=== PATIENT | female | born 1950 | race Caucasian/White ===

== ENCOUNTER 2017-07-09 05:53 | Inpatient (IN) | payer BC ==
[2017-07-09] MEDS ORDERED: ETOMIDATE 20 MG INJ (06:00)
[2017-07-09] MEDS ORDERED: SUCCINYLCHOLINE CHLORIDE 100 MG/5 ML SYG IV (06:00)
[2017-07-09] MEDS ORDERED: SOD CHLORIDE 0.9% 500 ML IV (06:30)
[2017-07-09] MEDS ORDERED: SOD CHLORIDE 0.9% 1,000 ML IV (06:30)
[2017-07-09 06:41] LABS: AADO2 Arterial 568.5 mmHg (7.0-24.0); Allen Test ACCEPTAB; Arterial Base Excess 0 mmol/L (-3.0-3); Arterial Blood Gas Oxygen Sat 94.1 mmHG (95.0-98.0); Arterial COHb 0.2 % (0.0-3.0); Arterial Fraction of Oxyhgb 93.8 % (93.0-99.0); Arterial HCO3 26.7 mmol/L (22.0-26.0); Arterial MetHb 0.1 % (0.0-1.5); Arterial Total Hemglobin 11.1 g/dl (12.0-18.0); Arterial pCO2 53.4 mmhg (35-45); Blood Gas IEPAP 20/8; MODE MASK - BIPAP; Site Left Radial
[2017-07-09] MEDS ORDERED: NORepinephrine 8MG/250 ML (PMX 250 ML (06:49)
[2017-07-09] MEDS ORDERED: PROPOFOL 100 ML (07:16)
[2017-07-09] MEDS: PROPOFOL 100 ML IV ×2 (07:30→18:30)
[2017-07-09] MEDS: NORepinephrine 8MG/250 ML (PMX 250 ML IV (08:38)
[2017-07-09 08:53] LABS: AADO2 Arterial 564.3 mmHg (7.0-24.0); Allen Test ACCEPTAB; Arterial Base Excess -1.6 mmol/L (-3.0-3); Arterial Blood Gas Oxygen Sat 92.9 mmHG (95.0-98.0); Arterial COHb 0.7 % (0.0-3.0); Arterial Fraction of Oxyhgb 92.2 % (93.0-99.0); Arterial HCO3 26.6 mmol/L (22.0-26.0); Arterial MetHb 0.1 % (0.0-1.5); Arterial Total Hemglobin 11.7 g/dl (12.0-18.0); Arterial pCO2 62.4 mmhg (35-45); MODE VENT - AC; Site Right Radial
[2017-07-09] MEDS: SOD CHLORIDE 0.9% 500 ML IV ×2 (08:54→09:00)
[2017-07-09] MEDS ORDERED: VANCOMYCIN IV PER PHARMACY XX (09:00)
[2017-07-09] MEDS ORDERED: MAGNESIUM HYDROXIDE 30ML CUP PO (09:00)
[2017-07-09] MEDS ORDERED: IPRATROPIUM (HFA) 12.9 GM INHALER INH (09:00)
[2017-07-09] MEDS ORDERED: ALBUTEROL HFA 8 GM INHALER INH (09:00)
[2017-07-09] MEDS ORDERED: ONDANSETRON 4 MG INJ IV (09:00)
[2017-07-09] MEDS ORDERED: LORAZEPAM 2 MG INJ IV (09:00)
[2017-07-09 09:29] LABS: WHITE BLOOD COUNT 55.9 10^3/ul (4.8-10.8)
[2017-07-09 09:29] LABS: ABNORMAL IP MESSAGE 1; HEMATOCRIT 35.8 % (37.0-47.0); HEMOGLOBIN 10.6 g/dl (12.0-16.0); MEAN CORPUSCULAR HEMOGLOBIN 26.8 pg (29.0-33.0); MEAN CORPUSCULAR HGB CONC 29.6 g/dl (32.0-37.0); MEAN CORPUSCULAR VOLUME 90.6 fl (82.0-101.0); MEAN PLATELET VOLUME 12.5 fl (7.4-10.4); PLATELET COUNT 95 10^3/UL (140-415); RED BLOOD COUNT 3.95 10^6/ul (4.20-5.40)
[2017-07-09 09:39] LABS: ADD MAN DIFF? YES; POSITIVE DIFF @See below
[2017-07-09 10:18] LABS: LACTIC ACID 2.2 mmol/L (0.5-2.0)
[2017-07-09] MEDS: SOD CHLORIDE 0.9% 1,000 ML IV ×2 (10:19→20:21)
[2017-07-09] MEDS: HEPARIN 5,000 UNIT/0.5 ML VIAL SC ×2 (10:22→20:24)
[2017-07-09] MEDS: MEROPENEM 1 GM/50ML(PMX) 50 ML IVPB ×2 (10:23→20:21)
[2017-07-09 10:28] LABS: TROPONIN-I 0.012 ng/ml (0.00-0.12)
[2017-07-09 10:32] LABS: ANISOCYTOSIS 1+ (0-0); BAND NEUTROPHILS #M 5.5 10^3/ul (0.0-0.6); BAND NEUTROPHILS % (M) 10 % (0-4); HYPOCHROMASIA 1+ (0-0); MICROCYTOSIS 1+ (0-0); MONOCYTE #M 1.1 10^3/ul (0.3-0.9); MONOCYTES % (M) 2 % (0-11); PLATELET ESTIMATE DECREASED; SEG NEUT #M 52.3 10^3/ul (1.7-7.5); SEGMENTED NEUTROPHILS (M) % 88 % (39-77); SMUDGE%M 4 % (0-0)
[2017-07-09 11:05] LABS: PHOSPHORUS 5.9 mg/dl (2.5-4.9)
[2017-07-09 11:05] LABS: ANION GAP 13 (8-16); BLOOD UREA NITROGEN 23 mg/dl (7-20); CALCIUM 7.9 mg/dl (8.4-10.2); CARBON DIOXIDE 26 mmol/L (21-31); CHLORIDE 109 mmol/L (97-110); CREATININE 0.87 mg/dl (0.44-1.00); GLUCOSE 125 mg/dl (70-220); MAGNESIUM 1.8 mg/dl (1.7-2.5); SODIUM 144 mmol/L (135-144)
[2017-07-09] MEDS: ALBUTEROL/IPRATROPIUM (NEB) 3 ML AMP HHN ×2 (13:00→17:00)
[2017-07-09] MEDS: METHYLPREDNISOLONE 125 MG INJ IV ×2 (13:18→18:32)
[2017-07-09 15:34] LABS: TROPONIN-I < 0.012 ng/ml (0.00-0.12)
[2017-07-09] MEDS: CASPOFUNGIN 50 MG in SOD CHLORIDE 0.9% 250 ML IVPB (16:25)
[2017-07-09] MEDS: VANCOMYCIN 500MG/NS (PMX) 100 ML IVPB (17:20)
[2017-07-09] MEDS: COLLAGENASE 30 GM TUBE TOP (20:20)
[2017-07-09] MEDS: ALBUTEROL HFA 8 GM INHALER INH (21:02)
[2017-07-10] MEDS: METHYLPREDNISOLONE 125 MG INJ IV ×5 (00:40→23:30)
[2017-07-10] MEDS: ALBUTEROL HFA 8 GM INHALER INH ×6 (00:57→20:11)
[2017-07-10 04:18] LABS: ADD MAN DIFF? NO
[2017-07-10 04:22] LABS: ABNORMAL IP MESSAGE 1; BASOPHIL # 0.1 10^3/ul (0.0-0.1); BASOPHILS % 0.3 % (0.0-2.0); HEMATOCRIT 32.8 % (37.0-47.0); HEMOGLOBIN 10.3 g/dl (12.0-16.0); LYMPHOCYTES # 0.4 10^3/ul (0.8-2.9); LYMPHOCYTES % 1.2 % (15.0-51.0); MEAN CORPUSCULAR HEMOGLOBIN 27.2 pg (29.0-33.0); MEAN CORPUSCULAR HGB CONC 31.4 g/dl (32.0-37.0); MEAN CORPUSCULAR VOLUME 86.8 fl (82.0-101.0); MEAN PLATELET VOLUME 10.3 fl (7.4-10.4); MONOCYTE # 0.5 10^3/ul (0.3-0.9); MONOCYTES % 1.4 % (0.0-11.0); NEUTROPHIL # 32.2 10^3/ul (1.6-7.5); NEUTROPHILS % 94.9 % (39.0-77.0); PLATELET COUNT 317 10^3/UL (140-415); RED BLOOD COUNT 3.78 10^6/ul (4.20-5.40); RED CELL DISTRIBUTION WIDTH 19.9 % (11.5-14.5)
[2017-07-10 04:24] LABS: POSITIVE DIFF @See below
[2017-07-10 04:47] LABS: ANION GAP 13 (8-16); BLOOD UREA NITROGEN 21 mg/dl (7-20); CALCIUM 7.8 mg/dl (8.4-10.2); CARBON DIOXIDE 24 mmol/L (21-31); CHLORIDE 115 mmol/L (97-110); CREATININE 0.81 mg/dl (0.44-1.00); GLUCOSE 115 mg/dl (70-220); POTASSIUM 3.8 mmol/L (3.5-5.1); SODIUM 148 mmol/L (135-144)
[2017-07-10 04:52] LABS: VANCOMYCIN,TROUGH 12.6 ug/ml (10.0-20.0)
[2017-07-10] MEDS: SOD CHLORIDE 0.9% 1,000 ML IV ×3 (04:56→20:18)
[2017-07-10] MEDS: PROPOFOL 100 ML IV ×2 (04:59→18:30)
[2017-07-10] MEDS: VANCOMYCIN 500MG/NS (PMX) 100 ML IVPB ×2 (05:23→17:19)
[2017-07-10] MEDS: PANTOPRAZOLE (EC) 40 MG TAB PO (06:41)
[2017-07-10 08:48] LABS: AADO2 Arterial 326.7 mmHg (7.0-24.0); Allen Test ACCEPTAB; Arterial Base Excess 1.7 mmol/L (-3.0-3); Arterial Blood Gas Oxygen Sat 86.6 mmHG (95.0-98.0); Arterial COHb 1.3 % (0.0-3.0); Arterial Fraction of Oxyhgb 85.4 % (93.0-99.0); Arterial HCO3 26.5 mmol/L (22.0-26.0); Arterial MetHb 0.1 % (0.0-1.5); Arterial Total Hemglobin 9.4 g/dl (12.0-18.0); Arterial pCO2 42.9 mmhg (35-45); MODE VENT - AC; Site Right Radial
[2017-07-10] MEDS: SOD CHLORIDE 0.9% 500 ML IV (09:11)
[2017-07-10] MEDS: MULTIVITAMINS 30 ML CUP NGT (09:30)
[2017-07-10] MEDS: ASCORBIC ACID 500 MG TAB NGT (09:30)
[2017-07-10] MEDS: MEROPENEM 1 GM/50ML(PMX) 50 ML IVPB ×2 (09:30→20:52)
[2017-07-10] MEDS: ZINC SULFATE 220 MG CAP NGT (09:30)
[2017-07-10] MEDS: HEPARIN 5,000 UNIT/0.5 ML VIAL SC ×2 (09:31→20:53)
[2017-07-10] MEDS: COLLAGENASE 30 GM TUBE TOP (09:31)
[2017-07-10] MEDS: CASPOFUNGIN 50 MG in SOD CHLORIDE 0.9% 250 ML IVPB (16:39)
[2017-07-11] MEDS: PROPOFOL 100 ML IV ×2 (00:35→14:32)
[2017-07-11] MEDS: ALBUTEROL HFA 8 GM INHALER INH ×6 (01:22→21:07)
[2017-07-11] MEDS: VANCOMYCIN 500MG/NS (PMX) 100 ML IVPB ×2 (04:30→16:41)
[2017-07-11] MEDS: PANTOPRAZOLE 40 MG INJ IV (05:23)
[2017-07-11] MEDS: METHYLPREDNISOLONE 125 MG INJ IV (05:30)
[2017-07-11] MEDS: SOD CHLORIDE 0.9% 1,000 ML IV (06:07)
[2017-07-11 06:32] LABS: ADD MAN DIFF? NO
[2017-07-11 06:37] LABS: WHITE BLOOD COUNT 17.5 10^3/ul (4.8-10.8)
[2017-07-11 06:37] LABS: ABNORMAL IP MESSAGE 1; BASOPHILS % 0.2 % (0.0-2.0); HEMATOCRIT 28.2 % (37.0-47.0); HEMOGLOBIN 8.7 g/dl (12.0-16.0); LYMPHOCYTES # 0.6 10^3/ul (0.8-2.9); LYMPHOCYTES % 3.2 % (15.0-51.0); MEAN CORPUSCULAR HEMOGLOBIN 27.3 pg (29.0-33.0); MEAN CORPUSCULAR HGB CONC 30.9 g/dl (32.0-37.0); MEAN CORPUSCULAR VOLUME 88.4 fl (82.0-101.0); MEAN PLATELET VOLUME 10.5 fl (7.4-10.4); MONOCYTE # 0.5 10^3/ul (0.3-0.9); MONOCYTES % 2.7 % (0.0-11.0); NEUTROPHIL # 16.1 10^3/ul (1.6-7.5); NEUTROPHILS % 92.2 % (39.0-77.0); PLATELET COUNT 259 10^3/UL (140-415); RED BLOOD COUNT 3.19 10^6/ul (4.20-5.40); RED CELL DISTRIBUTION WIDTH 19.6 % (11.5-14.5)
[2017-07-11 06:43] LABS: POSITIVE DIFF @See below
[2017-07-11 07:11] LABS: ANION GAP 13 (8-16); BLOOD UREA NITROGEN 25 mg/dl (7-20); CALCIUM 7.8 mg/dl (8.4-10.2); CARBON DIOXIDE 26 mmol/L (21-31); CHLORIDE 117 mmol/L (97-110); CREATININE 0.65 mg/dl (0.44-1.00); GLUCOSE 126 mg/dl (70-220); POTASSIUM 3.6 mmol/L (3.5-5.1); SODIUM 152 mmol/L (135-144)
[2017-07-11 07:32] LABS: PHOSPHORUS 3.4 mg/dl (2.5-4.9)
[2017-07-11 07:32] LABS: MAGNESIUM 1.8 mg/dl (1.7-2.5)
[2017-07-11 08:32] LABS: Allen Test ACCEPTAB; Arterial Base Excess 1.2 mmol/L (-3.0-3); Arterial Blood Gas Oxygen Sat 93.3 mmHG (95.0-98.0); Arterial COHb 0.2 % (0.0-3.0); Arterial HCO3 26.3 mmol/L (22.0-26.0); Arterial MetHb 0.1 % (0.0-1.5); Arterial Total Hemglobin 9.3 g/dl (12.0-18.0); Arterial pCO2 44.1 mmhg (35-45); MODE VENT - AC; Site Right Radial
[2017-07-11] MEDS: MEROPENEM 1 GM/50ML(PMX) 50 ML IVPB ×2 (08:48→21:02)
[2017-07-11] MEDS: ASCORBIC ACID 500 MG TAB NGT (08:48)
[2017-07-11] MEDS: ZINC SULFATE 220 MG CAP NGT (08:48)
[2017-07-11] MEDS: MULTIVITAMINS 30 ML CUP NGT (08:48)
[2017-07-11] MEDS: COLLAGENASE 30 GM TUBE TOP (08:48)
[2017-07-11] MEDS: HEPARIN 5,000 UNIT/0.5 ML VIAL SC ×2 (08:53→21:06)
[2017-07-11] MEDS: METHYLPREDNISOLONE 40 MG INJ IV ×2 (14:32→21:31)
[2017-07-11] MEDS: SOD CHLORIDE 0.45% 1,000 ML IV (14:35)
[2017-07-11] MEDS: CASPOFUNGIN 50 MG in SOD CHLORIDE 0.9% 250 ML IVPB (15:30)
[2017-07-11] MEDS: HYDROmorphONE 0.5 MG/0.5 ML SYG IV (23:07)
[2017-07-12] MEDS: PROPOFOL 100 ML IV ×3 (00:19→20:57)
[2017-07-12] MEDS: ALBUTEROL HFA 8 GM INHALER INH ×6 (01:18→20:08)
[2017-07-12] MEDS: SOD CHLORIDE 0.45% 1,000 ML IV ×2 (04:48→06:54)
[2017-07-12] MEDS: VANCOMYCIN 500MG/NS (PMX) 100 ML IVPB ×2 (05:22→16:51)
[2017-07-12] MEDS: PANTOPRAZOLE 40 MG INJ IV (05:37)
[2017-07-12] MEDS: METHYLPREDNISOLONE 40 MG INJ IV ×3 (05:37→21:32)
[2017-07-12 05:57] LABS: ADD MAN DIFF? NO
[2017-07-12 06:15] LABS: WHITE BLOOD COUNT 14.3 10^3/ul (4.8-10.8)
[2017-07-12 06:15] LABS: ABNORMAL IP MESSAGE 1; BASOPHILS % 0.1 % (0.0-2.0); HEMATOCRIT 29.9 % (37.0-47.0); HEMOGLOBIN 9.4 g/dl (12.0-16.0); LYMPHOCYTES # 0.5 10^3/ul (0.8-2.9); LYMPHOCYTES % 3.8 % (15.0-51.0); MEAN CORPUSCULAR HEMOGLOBIN 27.6 pg (29.0-33.0); MEAN CORPUSCULAR HGB CONC 31.4 g/dl (32.0-37.0); MEAN CORPUSCULAR VOLUME 87.7 fl (82.0-101.0); MEAN PLATELET VOLUME 10.3 fl (7.4-10.4); MONOCYTE # 0.6 10^3/ul (0.3-0.9); MONOCYTES % 4.1 % (0.0-11.0); NEUTROPHILS % 90.4 % (39.0-77.0); PLATELET COUNT 230 10^3/UL (140-415); RED BLOOD COUNT 3.41 10^6/ul (4.20-5.40); RED CELL DISTRIBUTION WIDTH 19.9 % (11.5-14.5)
[2017-07-12 06:38] LABS: MAGNESIUM 1.9 mg/dl (1.7-2.5)
[2017-07-12 06:38] LABS: PHOSPHORUS 3.3 mg/dl (2.5-4.9)
[2017-07-12 06:39] LABS: ALANINE AMINOTRANSFERASE 35 IU/L (13-69); ALKALINE PHOSPHATASE 105 IU/L (42-121); ANION GAP 15 (8-16); ASPARTATE AMINO TRANSFERASE 11 IU/L (15-46); BLOOD UREA NITROGEN 29 mg/dl (7-20); CALCIUM 7.8 mg/dl (8.4-10.2); CARBON DIOXIDE 24 mmol/L (21-31); CHLORIDE 118 mmol/L (97-110); CREATININE 0.68 mg/dl (0.44-1.00); GLUCOSE 139 mg/dl (70-220); SODIUM 153 mmol/L (135-144); TOTAL PROTEIN 4.5 g/dl (6.1-8.1)
[2017-07-12 06:58] LABS: POSITIVE DIFF @See below
[2017-07-12] MEDS: MEROPENEM 1 GM/50ML(PMX) 50 ML IVPB ×2 (08:48→20:57)
[2017-07-12] MEDS: ZINC SULFATE 220 MG CAP NGT (08:48)
[2017-07-12] MEDS: ASCORBIC ACID 500 MG TAB NGT (08:48)
[2017-07-12] MEDS: MULTIVITAMINS 30 ML CUP NGT (08:48)
[2017-07-12] MEDS: HEPARIN 5,000 UNIT/0.5 ML VIAL SC ×2 (09:02→20:58)
[2017-07-12] MEDS: COLLAGENASE 30 GM TUBE TOP (09:09)
[2017-07-12] MEDS: HYDROmorphONE 0.5 MG/0.5 ML SYG IV ×2 (11:31→19:35)
[2017-07-12] MEDS: CASPOFUNGIN 50 MG in SOD CHLORIDE 0.9% 250 ML IVPB (16:04)
[2017-07-13] MEDS: ALBUTEROL HFA 8 GM INHALER INH ×6 (00:18→23:42)
[2017-07-13] MEDS: HYDROmorphONE 0.5 MG/0.5 ML SYG IV ×4 (00:35→15:20)
[2017-07-13] MEDS: SOD CHLORIDE 0.45% 1,000 ML IV (01:06)
[2017-07-13] MEDS: VANCOMYCIN 500MG/NS (PMX) 100 ML IVPB ×2 (04:35→18:30)
[2017-07-13 05:17] LABS: ADD MAN DIFF? NO
[2017-07-13 05:26] LABS: WHITE BLOOD COUNT 14.9 10^3/ul (4.8-10.8)
[2017-07-13 05:26] LABS: ABNORMAL IP MESSAGE 1; BASOPHILS % 0.2 % (0.0-2.0); HEMATOCRIT 30.3 % (37.0-47.0); HEMOGLOBIN 9.2 g/dl (12.0-16.0); LYMPHOCYTES # 0.6 10^3/ul (0.8-2.9); LYMPHOCYTES % 3.7 % (15.0-51.0); MEAN CORPUSCULAR HGB CONC 30.4 g/dl (32.0-37.0); MEAN CORPUSCULAR VOLUME 88.9 fl (82.0-101.0); MEAN PLATELET VOLUME 10.3 fl (7.4-10.4); MONOCYTE # 0.6 10^3/ul (0.3-0.9); MONOCYTES % 4.3 % (0.0-11.0); NEUTROPHIL # 13.3 10^3/ul (1.6-7.5); NEUTROPHILS % 89.6 % (39.0-77.0); PLATELET COUNT 206 10^3/UL (140-415); RED BLOOD COUNT 3.41 10^6/ul (4.20-5.40); RED CELL DISTRIBUTION WIDTH 19.2 % (11.5-14.5)
[2017-07-13 05:36] LABS: POSITIVE DIFF @See below
[2017-07-13] MEDS: METHYLPREDNISOLONE 40 MG INJ IV ×2 (05:45→15:11)
[2017-07-13] MEDS: PANTOPRAZOLE 40 MG INJ IV ×2 (05:45→21:01)
[2017-07-13 06:16] LABS: ANION GAP 14 (8-16); BLOOD UREA NITROGEN 32 mg/dl (7-20); CALCIUM 7.6 mg/dl (8.4-10.2); CARBON DIOXIDE 24 mmol/L (21-31); CHLORIDE 119 mmol/L (97-110); CREATININE 0.64 mg/dl (0.44-1.00); GLUCOSE 135 mg/dl (70-220); POTASSIUM 4.4 mmol/L (3.5-5.1); SODIUM 153 mmol/L (135-144)
[2017-07-13 06:52] LABS: MAGNESIUM 1.9 mg/dl (1.7-2.5)
[2017-07-13 06:52] LABS: PHOSPHORUS 3.4 mg/dl (2.5-4.9)
[2017-07-13] MEDS: ZINC SULFATE 220 MG CAP NGT (08:14)
[2017-07-13] MEDS: MULTIVITAMINS 30 ML CUP NGT (08:14)
[2017-07-13] MEDS: DOCUSATE SODIUM 100 MG CAP PO (08:14)
[2017-07-13] MEDS: ASCORBIC ACID 500 MG TAB NGT (08:15)
[2017-07-13] MEDS: HEPARIN 5,000 UNIT/0.5 ML VIAL SC (08:17)
[2017-07-13] MEDS: COLLAGENASE 30 GM TUBE TOP (08:17)
[2017-07-13] MEDS: MEROPENEM 1 GM/50ML(PMX) 50 ML IVPB ×2 (08:18→21:02)
[2017-07-13 10:45] LABS: AADO2 Arterial 230.7 mmHg (7.0-24.0); Allen Test ACCEPTAB; Arterial Base Excess -2.1 mmol/L (-3.0-3); Arterial COHb 0 % (0.0-3.0); Arterial Fraction of Oxyhgb 93.9 % (93.0-99.0); Arterial HCO3 22.2 mmol/L (22.0-26.0); Arterial MetHb 0.1 % (0.0-1.5); Arterial Total Hemglobin 10.8 g/dl (12.0-18.0); MODE VENT - AC; Site Right Radial
[2017-07-13] MEDS: DEXTROSE 5% 1,000 ML IV (16:24)
[2017-07-13] MEDS: CASPOFUNGIN 50 MG in SOD CHLORIDE 0.9% 250 ML IVPB (16:26)
[2017-07-13 18:45] LABS: ADD MAN DIFF? NO
[2017-07-13 18:47] LABS: BASOPHILS % 0.1 % (0.0-2.0); HEMATOCRIT 28.4 % (37.0-47.0); HEMOGLOBIN 8.6 g/dl (12.0-16.0); LYMPHOCYTES # 0.8 10^3/ul (0.8-2.9); LYMPHOCYTES % 3.7 % (15.0-51.0); MEAN CORPUSCULAR HEMOGLOBIN 27.2 pg (29.0-33.0); MEAN CORPUSCULAR HGB CONC 30.3 g/dl (32.0-37.0); MEAN CORPUSCULAR VOLUME 89.9 fl (82.0-101.0); MEAN PLATELET VOLUME 10.4 fl (7.4-10.4); MONOCYTE # 0.7 10^3/ul (0.3-0.9); MONOCYTES % 3.5 % (0.0-11.0); PLATELET COUNT 222 10^3/UL (140-415); RED BLOOD COUNT 3.16 10^6/ul (4.20-5.40); RED CELL DISTRIBUTION WIDTH 18.7 % (11.5-14.5)
[2017-07-13 18:47] LABS: WHITE BLOOD COUNT 21.1 10^3/ul (4.8-10.8)
[2017-07-13 21:15] LABS: AADO2 Arterial 288.9 mmHg (7.0-24.0); Allen Test ACCEPTAB; Arterial Base Excess -2.3 mmol/L (-3.0-3); Arterial Blood Gas Oxygen Sat 94.1 mmHG (95.0-98.0); Arterial COHb 0.3 % (0.0-3.0); Arterial Fraction of Oxyhgb 93.7 % (93.0-99.0); Arterial HCO3 23.1 mmol/L (22.0-26.0); Arterial MetHb 0.1 % (0.0-1.5); Arterial Total Hemglobin 9.3 g/dl (12.0-18.0); Arterial pCO2 42.2 mmhg (35-45); MODE VENT - AC; Site Right Radial
[2017-07-13] MEDS: PEG/ELECTROLYTES 4L BTL PO ×2 (22:17→23:46)
[2017-07-13] MEDS: PROPOFOL 100 ML IV (22:36)
[2017-07-14 01:55] LABS: IMMEDIATE SPIN CROSSMATCH 1 2
[2017-07-14] MEDS: VANCOMYCIN 500MG/NS (PMX) 100 ML IVPB ×2 (04:56→18:05)
[2017-07-14] MEDS: ALBUTEROL HFA 8 GM INHALER INH ×5 (05:00→20:03)
[2017-07-14 05:31] LABS: ADD MAN DIFF? NO
[2017-07-14 05:50] LABS: ABNORMAL IP MESSAGE 1; BASOPHIL # 0.2 10^3/ul (0.0-0.1); BASOPHILS % 0.6 % (0.0-2.0); HEMATOCRIT 43.8 % (37.0-47.0); HEMOGLOBIN 14.1 g/dl (12.0-16.0); LYMPHOCYTES # 1.4 10^3/ul (0.8-2.9); LYMPHOCYTES % 4.6 % (15.0-51.0); MEAN CORPUSCULAR HEMOGLOBIN 28.7 pg (29.0-33.0); MEAN CORPUSCULAR HGB CONC 32.2 g/dl (32.0-37.0); MEAN PLATELET VOLUME 12.1 fl (7.4-10.4); MONOCYTE # 1.1 10^3/ul (0.3-0.9); MONOCYTES % 3.7 % (0.0-11.0); NEUTROPHIL # 26.3 10^3/ul (1.6-7.5); RED BLOOD COUNT 4.92 10^6/ul (4.20-5.40); RED CELL DISTRIBUTION WIDTH 16.2 % (11.5-14.5)
[2017-07-14 05:50] LABS: WHITE BLOOD COUNT 30.2 10^3/ul (4.8-10.8)
[2017-07-14 06:03] LABS: PHOSPHORUS 4.3 mg/dl (2.5-4.9)
[2017-07-14 06:03] LABS: MAGNESIUM 2.1 mg/dl (1.7-2.5)
[2017-07-14] MEDS: PANTOPRAZOLE 40 MG INJ IV ×2 (06:04→18:06)
[2017-07-14] MEDS: PROPOFOL 100 ML IV ×2 (06:04→18:30)
[2017-07-14 06:08] LABS: ANION GAP 18 (8-16); BLOOD UREA NITROGEN 37 mg/dl (7-20); CALCIUM 7.4 mg/dl (8.4-10.2); CARBON DIOXIDE 23 mmol/L (21-31); CHLORIDE 118 mmol/L (97-110); CREATININE 0.63 mg/dl (0.44-1.00); GLUCOSE 141 mg/dl (70-220); POTASSIUM 4.5 mmol/L (3.5-5.1); SODIUM 154 mmol/L (135-144)
[2017-07-14 06:15] LABS: PLATELET COUNT 138 10^3/UL (140-415); POSITIVE DIFF @See below
[2017-07-14] MEDS: SOD CHLORIDE 0.9% 1,000 ML IV ×2 (06:51→12:50)
[2017-07-14] MEDS: MULTIVITAMINS 30 ML CUP NGT (09:00)
[2017-07-14] MEDS: MEROPENEM 1 GM/50ML(PMX) 50 ML IVPB ×2 (09:00→20:38)
[2017-07-14] MEDS: ASCORBIC ACID 500 MG TAB NGT (09:00)
[2017-07-14] MEDS: ZINC SULFATE 220 MG CAP NGT (09:00)
[2017-07-14] MEDS: COLLAGENASE 30 GM TUBE TOP ×2 (09:00→11:55)
[2017-07-14] MEDS: NA PHOSPHATE/BIPHOS 133 ML ENEMA PR (11:30)
[2017-07-14] MEDS ORDERED: MIDAZOLAM (DRIP) 50 mg/50 mL 50 ML IV (12:45)
[2017-07-14] MEDS: MIDAZOLAM (DRIP) 50 mg/50 mL 50 ML IV ×2 (13:09→22:27)
[2017-07-14] MEDS: DEXTROSE 5% 1,000 ML IV (15:30)
[2017-07-14] MEDS: CASPOFUNGIN 50 MG in SOD CHLORIDE 0.9% 250 ML IVPB (16:40)
[2017-07-14 17:40] LABS: VANCOMYCIN,TROUGH 17.6 ug/ml (10.0-20.0)
[2017-07-14] MEDS: PHENYLephrine 20MG IN 250 ML 250 ML IV (20:37)
[2017-07-15] MEDS: ALBUTEROL HFA 8 GM INHALER INH ×3 (00:17→07:56)
[2017-07-15] MEDS: PHENYLephrine 20MG IN 250 ML 250 ML IV ×2 (03:03→07:26)
[2017-07-15] MEDS: DEXTROSE 5% 1,000 ML IV (04:47)
[2017-07-15 05:30] LABS: ABNORMAL IP MESSAGE 1; HEMATOCRIT 44.9 % (37.0-47.0); HEMOGLOBIN 14.4 g/dl (12.0-16.0); MEAN CORPUSCULAR HEMOGLOBIN 28.5 pg (29.0-33.0); MEAN CORPUSCULAR HGB CONC 32.1 g/dl (32.0-37.0); MEAN CORPUSCULAR VOLUME 88.7 fl (82.0-101.0); MEAN PLATELET VOLUME 12.8 fl (7.4-10.4); PLATELET COUNT 135 10^3/UL (140-415); RED BLOOD COUNT 5.06 10^6/ul (4.20-5.40); RED CELL DISTRIBUTION WIDTH 17.3 % (11.5-14.5)
[2017-07-15 05:30] LABS: WHITE BLOOD COUNT 48.6 10^3/ul (4.8-10.8)
[2017-07-15 05:47] LABS: ADD MAN DIFF? YES; POSITIVE DIFF @See below
[2017-07-15 06:12] LABS: ALANINE AMINOTRANSFERASE 44 IU/L (13-69); ALBUMIN/GLOBULIN RATIO 0.83; ALKALINE PHOSPHATASE 123 IU/L (42-121); ANION GAP 22 (8-16); ASPARTATE AMINO TRANSFERASE 31 IU/L (15-46); BILIRUBIN,INDIRECT 0.4 mg/dl (0-1.1); BILIRUBIN,TOTAL 1.5 mg/dl (0.2-1.3); BLOOD UREA NITROGEN 40 mg/dl (7-20); CALCIUM 7.7 mg/dl (8.4-10.2); CARBON DIOXIDE 21 mmol/L (21-31); CHLORIDE 116 mmol/L (97-110); CREATININE 0.86 mg/dl (0.44-1.00); GLUCOSE 114 mg/dl (70-220); SODIUM 155 mmol/L (135-144); TOTAL PROTEIN 4.4 g/dl (6.1-8.1)
[2017-07-15 06:23] LABS: MAGNESIUM 2.3 mg/dl (1.7-2.5)
[2017-07-15 06:23] LABS: PHOSPHORUS 5.6 mg/dl (2.5-4.9)
[2017-07-15] MEDS: PANTOPRAZOLE 40 MG INJ IV ×2 (06:26→17:40)
[2017-07-15] MEDS: PROPOFOL 100 ML IV ×2 (06:30→18:30)
[2017-07-15] MEDS ORDERED: PHENYLephrine 40 MG in DEXTROSE 5% 496 ML IV (07:00)
[2017-07-15 07:42] LABS: ANISOCYTOSIS 2+ (0-0); BAND NEUTROPHILS #M 10.6 10^3/ul (0.0-0.6); BAND NEUTROPHILS % (M) 22 % (0-4); BURR CELLS 2+ (0-0); HYPOCHROMASIA 2+ (0-0); LYMPHOCYTES #M 2.9 10^3/ul (0.8-2.9); LYMPHOCYTES % (M) 6 % (15-51); MICROCYTOSIS 1+ (0-0); MONOCYTE #M 0.9 10^3/ul (0.3-0.9); MONOCYTES % (M) 2 % (0-11); PLATELET ESTIMATE DECREASED; POIKILOCYTOSIS 1+ (0-0); POLYCHROMASIA 3+ (0-0); SEG NEUT #M 39.2 10^3/ul (1.7-7.5); SEGMENTED NEUTROPHILS (M) % 70 % (39-77)
[2017-07-15] MEDS: SOD CHLORIDE 0.9% 500 ML IV (08:30)
[2017-07-15] MEDS: MEROPENEM 1 GM/50ML(PMX) 50 ML IVPB ×2 (08:35→20:41)
[2017-07-15] MEDS: COLLAGENASE 30 GM TUBE TOP ×2 (08:36→10:30)
[2017-07-15] MEDS: ZINC SULFATE 220 MG CAP NGT (09:11)
[2017-07-15] MEDS: ASCORBIC ACID 500 MG TAB NGT (09:11)
[2017-07-15] MEDS: MULTIVITAMINS 30 ML CUP NGT (09:11)
[2017-07-15] MEDS: SOD CHLORIDE 0.9% 1,000 ML IV (09:11)
[2017-07-15] MEDS: VANCOMYCIN HCL 250 MG/5ML POSYG PO ×3 (09:39→17:41)
[2017-07-15] MEDS: MIDAZOLAM (DRIP) 50 mg/50 mL 50 ML IV (09:40)
[2017-07-15] MEDS: LACTATED RINGER'S 1,000 ML IV ×2 (13:04→16:09)
[2017-07-15 15:19] LABS: ANION GAP 16 (8-16); BLOOD UREA NITROGEN 43 mg/dl (7-20); CALCIUM 7.1 mg/dl (8.4-10.2); CARBON DIOXIDE 21 mmol/L (21-31); CHLORIDE 117 mmol/L (97-110); GLUCOSE 119 mg/dl (70-220); SODIUM 150 mmol/L (135-144)
[2017-07-15] MEDS: CASPOFUNGIN 50 MG in SOD CHLORIDE 0.9% 250 ML IVPB (15:59)
[2017-07-15] MEDS: ACETAMINOPHEN 650MG/20.3ML CUP PO (15:59)
[2017-07-15] MEDS: ALBUMIN HUMAN 5% 250 ML IV (17:44)
[2017-07-15] MEDS: VANCOMYCIN 1.25 GM in SOD CHLORIDE 0.45% 250 ML IVPB (18:38)
[2017-07-16] MEDS: VANCOMYCIN HCL 250 MG/5ML POSYG PO ×5 (00:49→23:39)
[2017-07-16 05:14] LABS: Allen Test ACCEPTAB; Arterial Base Excess -7.8 mmol/L (-3.0-3); Arterial Blood Gas Oxygen Sat 98.2 mmHG (95.0-98.0); Arterial COHb 0 % (0.0-3.0); Arterial Fraction of Oxyhgb 97.9 % (93.0-99.0); Arterial HCO3 19.9 mmol/L (22.0-26.0); Arterial MetHb 0.3 % (0.0-1.5); Arterial Total Hemglobin 11.4 g/dl (12.0-18.0); MODE VENT - AC; Site Right Radial
[2017-07-16 05:17] LABS: WHITE BLOOD COUNT 43.5 10^3/ul (4.8-10.8)
[2017-07-16 05:17] LABS: ABNORMAL IP MESSAGE 1; HEMATOCRIT 32.9 % (37.0-47.0); HEMOGLOBIN 10.6 g/dl (12.0-16.0); MEAN CORPUSCULAR HGB CONC 32.2 g/dl (32.0-37.0); MEAN CORPUSCULAR VOLUME 89.9 fl (82.0-101.0); MEAN PLATELET VOLUME 12.4 fl (7.4-10.4); PLATELET COUNT 118 10^3/UL (140-415); RED BLOOD COUNT 3.66 10^6/ul (4.20-5.40); RED CELL DISTRIBUTION WIDTH 17.2 % (11.5-14.5)
[2017-07-16 05:50] LABS: POSITIVE DIFF @See below
[2017-07-16 05:51] LABS: ADD MAN DIFF? YES
[2017-07-16 06:10] LABS: ALANINE AMINOTRANSFERASE 74 IU/L (13-69); ALBUMIN 1.8 g/dl (3.3-4.9); ALBUMIN/GLOBULIN RATIO 0.85; ALKALINE PHOSPHATASE 107 IU/L (42-121); ANION GAP 19 (8-16); ASPARTATE AMINO TRANSFERASE 46 IU/L (15-46); BLOOD UREA NITROGEN 46 mg/dl (7-20); CALCIUM 7.7 mg/dl (8.4-10.2); CARBON DIOXIDE 20 mmol/L (21-31); CHLORIDE 116 mmol/L (97-110); CREATININE 1.17 mg/dl (0.44-1.00); GLUCOSE 103 mg/dl (70-220); POTASSIUM 3.9 mmol/L (3.5-5.1); SODIUM 151 mmol/L (135-144); TOTAL PROTEIN 3.9 g/dl (6.1-8.1)
[2017-07-16] MEDS: PANTOPRAZOLE 40 MG INJ IV ×2 (06:18→18:03)
[2017-07-16 06:26] LABS: PHOSPHORUS 6.7 mg/dl (2.5-4.9)
[2017-07-16 06:26] LABS: MAGNESIUM 2.2 mg/dl (1.7-2.5)
[2017-07-16] MEDS: PROPOFOL 100 ML IV ×2 (06:30→17:17)
[2017-07-16] MEDS: ZINC SULFATE 220 MG CAP NGT (08:06)
[2017-07-16] MEDS: ASCORBIC ACID 500 MG TAB NGT (08:06)
[2017-07-16] MEDS: MULTIVITAMINS 30 ML CUP NGT (08:06)
[2017-07-16] MEDS: MEROPENEM 1 GM/50ML(PMX) 50 ML IVPB ×2 (08:12→20:51)
[2017-07-16 08:22] LABS: ANISOCYTOSIS 1+ (0-0); BAND NEUTROPHILS #M 4.3 10^3/ul (0.0-0.6); BAND NEUTROPHILS % (M) 10 % (0-4); BURR CELLS 1+ (0-0); GIANT THROMBO% (M) 1 % (0-0); HYPOCHROMASIA 1+ (0-0); LYMPHOCYTES #M 1.3 10^3/ul (0.8-2.9); LYMPHOCYTES % (M) 3 % (15-51); MICROCYTOSIS 1+ (0-0); PLATELET ESTIMATE DECREASED; POIKILOCYTOSIS 1+ (0-0); POLYCHROMASIA 1+ (0-0); REACTIVE LYMPHOCYTES #M 0.4 10^3/ul (0.0-0.0); REACTIVE LYMPHOCYTES% (M) 1 % (0-0); SEG NEUT #M 39.3 10^3/ul (1.7-7.5); SEGMENTED NEUTROPHILS (M) % 86 % (39-77); TARGET CELLS 1+ (0-0)
[2017-07-16] MEDS: ALBUMIN HUMAN 25% 50 ML IV (10:05)
[2017-07-16] MEDS: SODIUM BICARBONATE (IV ADD) 150 MEQ in DEXTROSE 5% 850 ML IV ×2 (11:34→21:24)
[2017-07-16] MEDS: CASPOFUNGIN 50 MG in SOD CHLORIDE 0.9% 250 ML IVPB (15:51)
[2017-07-16 16:28] LABS: SODIUM,URINE RANDOM 20 mmol/L (30-90)
[2017-07-16] MEDS: COLLAGENASE 30 GM TUBE TOP (17:47)
[2017-07-17 05:44] LABS: ADD MAN DIFF? NO
[2017-07-17 05:48] LABS: ABNORMAL IP MESSAGE 1; BASOPHILS % 0.2 % (0.0-2.0); HEMATOCRIT 29.6 % (37.0-47.0); HEMOGLOBIN 9.6 g/dl (12.0-16.0); LYMPHOCYTES # 1.1 10^3/ul (0.8-2.9); LYMPHOCYTES % 4.2 % (15.0-51.0); MEAN CORPUSCULAR HEMOGLOBIN 28.6 pg (29.0-33.0); MEAN CORPUSCULAR HGB CONC 32.4 g/dl (32.0-37.0); MEAN CORPUSCULAR VOLUME 88.1 fl (82.0-101.0); MEAN PLATELET VOLUME 12.3 fl (7.4-10.4); MONOCYTE # 0.3 10^3/ul (0.3-0.9); MONOCYTES % 1.2 % (0.0-11.0); NEUTROPHIL # 24.6 10^3/ul (1.6-7.5); NEUTROPHILS % 93.6 % (39.0-77.0); PLATELET COUNT 118 10^3/UL (140-415); RED BLOOD COUNT 3.36 10^6/ul (4.20-5.40); RED CELL DISTRIBUTION WIDTH 17.1 % (11.5-14.5)
[2017-07-17 05:48] LABS: WHITE BLOOD COUNT 26.3 10^3/ul (4.8-10.8)
[2017-07-17 06:02] LABS: POSITIVE DIFF @See below
[2017-07-17 06:11] LABS: LACTIC ACID 2.4 mmol/L (0.5-2.0)
[2017-07-17] MEDS: PROPOFOL 100 ML IV ×2 (06:30→19:34)
[2017-07-17 06:36] LABS: ALANINE AMINOTRANSFERASE 57 IU/L (13-69); ALBUMIN 1.7 g/dl (3.3-4.9); ALKALINE PHOSPHATASE 95 IU/L (42-121); ANION GAP 18 (8-16); ASPARTATE AMINO TRANSFERASE 68 IU/L (15-46); BLOOD UREA NITROGEN 51 mg/dl (7-20); CALCIUM 7.2 mg/dl (8.4-10.2); CARBON DIOXIDE 22 mmol/L (21-31); CHLORIDE 112 mmol/L (97-110); CREATININE 1.03 mg/dl (0.44-1.00); GLUCOSE 120 mg/dl (70-220); LIPASE 49 U/L (23-300); POTASSIUM 3.9 mmol/L (3.5-5.1); SODIUM 148 mmol/L (135-144); TOTAL PROTEIN 3.8 g/dl (6.1-8.1)
[2017-07-17 06:38] LABS: PHOSPHORUS 5.9 mg/dl (2.5-4.9)
[2017-07-17 06:38] LABS: CREATINE KINASE 33 IU/L (23-200); MAGNESIUM 2.2 mg/dl (1.7-2.5)
[2017-07-17] MEDS: PANTOPRAZOLE 40 MG INJ IV ×2 (06:54→17:52)
[2017-07-17] MEDS: VANCOMYCIN HCL 250 MG/5ML POSYG PO ×3 (06:54→17:52)
[2017-07-17 07:03] LABS: THYROID STIMULATING HORMONE 0.737 MIU/L (0.465-4.680)
[2017-07-17] MEDS: SODIUM BICARBONATE (IV ADD) 150 MEQ in DEXTROSE 5% 850 ML IV ×2 (08:27→18:47)
[2017-07-17 09:06] LABS: BAND NEUTROPHILS #M 3.1 10^3/ul (0.0-0.6); BAND NEUTROPHILS % (M) 12 % (0-4); HYPOCHROMASIA 1+ (0-0); LYMPHOCYTES #M 1.5 10^3/ul (0.8-2.9); LYMPHOCYTES % (M) 6 % (15-51); PLATELET ESTIMATE DECREASED; POIKILOCYTOSIS 1+ (0-0); SEG NEUT #M 22.4 10^3/ul (1.7-7.5); SEGMENTED NEUTROPHILS (M) % 82 % (39-77); SMUDGE%M 1 % (0-0); TARGET CELLS 1+ (0-0)
[2017-07-17] MEDS: MULTIVITAMINS 30 ML CUP NGT (09:29)
[2017-07-17] MEDS: ZINC SULFATE 220 MG CAP NGT (09:29)
[2017-07-17] MEDS: ASCORBIC ACID 500 MG TAB NGT (09:29)
[2017-07-17] MEDS: MEROPENEM 1 GM/50ML(PMX) 50 ML IVPB ×2 (09:30→20:41)
[2017-07-17] MEDS: MIDAZOLAM (DRIP) 50 mg/50 mL 50 ML IV (09:39)
[2017-07-17] MEDS: COLLAGENASE 30 GM TUBE TOP (13:33)
[2017-07-17] MEDS: CASPOFUNGIN 50 MG in SOD CHLORIDE 0.9% 250 ML IVPB (15:45)
[2017-07-18] MEDS: VANCOMYCIN HCL 250 MG/5ML POSYG PO ×4 (01:32→18:10)
[2017-07-18] MEDS: MIDAZOLAM (DRIP) 50 mg/50 mL 50 ML IV (01:35)
[2017-07-18] MEDS: SODIUM BICARBONATE (IV ADD) 150 MEQ in DEXTROSE 5% 850 ML IV ×2 (04:06→16:26)
[2017-07-18 05:20] LABS: ABNORMAL IP MESSAGE 1; HEMATOCRIT 29.4 % (37.0-47.0); HEMOGLOBIN 9.6 g/dl (12.0-16.0); MEAN CORPUSCULAR HEMOGLOBIN 28.9 pg (29.0-33.0); MEAN CORPUSCULAR HGB CONC 32.7 g/dl (32.0-37.0); MEAN CORPUSCULAR VOLUME 88.6 fl (82.0-101.0); MEAN PLATELET VOLUME 13.3 fl (7.4-10.4); PLATELET COUNT 105 10^3/UL (140-415); RED BLOOD COUNT 3.32 10^6/ul (4.20-5.40); RED CELL DISTRIBUTION WIDTH 17.1 % (11.5-14.5)
[2017-07-18 05:37] LABS: ADD MAN DIFF? YES; POSITIVE DIFF @See below
[2017-07-18] MEDS: PANTOPRAZOLE 40 MG INJ IV ×2 (05:56→18:08)
[2017-07-18] MEDS: PROPOFOL 100 ML IV ×3 (05:58→22:38)
[2017-07-18 06:07] LABS: MAGNESIUM 2.1 mg/dl (1.7-2.5)
[2017-07-18 06:07] LABS: PHOSPHORUS 5.4 mg/dl (2.5-4.9)
[2017-07-18 06:44] LABS: ANION GAP 16 (8-16); BLOOD UREA NITROGEN 50 mg/dl (7-20); CARBON DIOXIDE 26 mmol/L (21-31); CHLORIDE 107 mmol/L (97-110); CREATININE 1.28 mg/dl (0.44-1.00); GLUCOSE 125 mg/dl (70-220); SODIUM 146 mmol/L (135-144)
[2017-07-18 06:59] LABS: POTASSIUM 2.5 mmol/L (3.5-5.1)
[2017-07-18 07:06] LABS: AADO2 Arterial 160.9 mmHg (7.0-24.0); Allen Test ACCEPTAB; Arterial Blood Gas Oxygen Sat 92.6 mmHG (95.0-98.0); Arterial COHb 0.1 % (0.0-3.0); Arterial Fraction of Oxyhgb 92.2 % (93.0-99.0); Arterial HCO3 22.5 mmol/L (22.0-26.0); Arterial MetHb 0.3 % (0.0-1.5); Arterial pCO2 42.4 mmhg (35-45); MODE VENT - VC+; Site Right Radial
[2017-07-18] MEDS ORDERED: POTASSIUM CHLORIDE 50 ML IVPB (07:30)
[2017-07-18] MEDS: POTASSIUM CHLORIDE 50 ML IVPB ×5 (07:35→22:41)
[2017-07-18 09:21] LABS: ANISOCYTOSIS 1+ (0-0); BAND NEUTROPHILS #M 7.7 10^3/ul (0.0-0.6); BAND NEUTROPHILS % (M) 35 % (0-4); HYPOCHROMASIA 2+ (0-0); LYMPHOCYTES #M 0.4 10^3/ul (0.8-2.9); LYMPHOCYTES % (M) 2 % (15-51); MONOCYTE #M 0.6 10^3/ul (0.3-0.9); MONOCYTES % (M) 3 % (0-11); PLATELET ESTIMATE DECREASED; SEG NEUT #M 14.9 10^3/ul (1.7-7.5); SEGMENTED NEUTROPHILS (M) % 60 % (39-77); SMUDGE%M 2 % (0-0)
[2017-07-18] MEDS: ZINC SULFATE 220 MG CAP NGT (09:23)
[2017-07-18] MEDS: ASCORBIC ACID 500 MG TAB NGT (09:23)
[2017-07-18] MEDS: MULTIVITAMINS 30 ML CUP NGT (09:23)
[2017-07-18] MEDS: COLLAGENASE 30 GM TUBE TOP (09:24)
[2017-07-18] MEDS: MEROPENEM 1 GM/50ML(PMX) 50 ML IVPB ×2 (09:37→20:24)
[2017-07-18 11:58] LABS: AADO2 Arterial 180.6 mmHg (7.0-24.0); Allen Test ACCEPTAB; Arterial Base Excess 3.3 mmol/L (-3.0-3); Arterial Blood Gas Oxygen Sat 88.1 mmHG (95.0-98.0); Arterial COHb 0.3 % (0.0-3.0); Arterial Fraction of Oxyhgb 87.6 % (93.0-99.0); Arterial HCO3 27.6 mmol/L (22.0-26.0); Arterial MetHb 0.3 % (0.0-1.5); Arterial Total Hemglobin 10.5 g/dl (12.0-18.0); Arterial pCO2 40.9 mmhg (35-45); MODE VENT - AC; Site Right Radial
[2017-07-18] MEDS: METOCLOPRAMIDE 10 MG INJ IV ×2 (12:45→18:08)
[2017-07-18] MEDS: CASPOFUNGIN 50 MG in SOD CHLORIDE 0.9% 250 ML IVPB (16:15)
[2017-07-18 17:19] LABS: POTASSIUM 3.2 mmol/L (3.5-5.1)
[2017-07-19] MEDS: POTASSIUM CHLORIDE 50 ML IVPB ×5 (00:01→16:29)
[2017-07-19] MEDS: METOCLOPRAMIDE 10 MG INJ IV ×4 (01:11→18:21)
[2017-07-19] MEDS: VANCOMYCIN HCL 250 MG/5ML POSYG PO ×4 (01:12→18:21)
[2017-07-19] MEDS: SODIUM BICARBONATE (IV ADD) 150 MEQ in DEXTROSE 5% 850 ML IV ×3 (01:12→23:00)
[2017-07-19 05:47] LABS: WHITE BLOOD COUNT 19.2 10^3/ul (4.8-10.8)
[2017-07-19 05:47] LABS: ABNORMAL IP MESSAGE 1; HEMATOCRIT 28.8 % (37.0-47.0); HEMOGLOBIN 9.6 g/dl (12.0-16.0); MEAN CORPUSCULAR HEMOGLOBIN 28.7 pg (29.0-33.0); MEAN CORPUSCULAR HGB CONC 33.3 g/dl (32.0-37.0); MEAN CORPUSCULAR VOLUME 86.2 fl (82.0-101.0); MEAN PLATELET VOLUME 13.3 fl (7.4-10.4); PLATELET COUNT 104 10^3/UL (140-415); RED BLOOD COUNT 3.34 10^6/ul (4.20-5.40); RED CELL DISTRIBUTION WIDTH 17.3 % (11.5-14.5)
[2017-07-19 05:52] LABS: POSITIVE DIFF @See below
[2017-07-19 05:53] LABS: ADD MAN DIFF? YES
[2017-07-19 06:40] LABS: PHOSPHORUS 5.3 mg/dl (2.5-4.9)
[2017-07-19] MEDS: PANTOPRAZOLE 40 MG INJ IV ×2 (06:41→18:20)
[2017-07-19 06:58] LABS: ANISOCYTOSIS 1+ (0-0); BAND NEUTROPHILS #M 4.2 10^3/ul (0.0-0.6); BAND NEUTROPHILS % (M) 22 % (0-4); HYPOCHROMASIA 1+ (0-0); LYMPHOCYTES #M 0.9 10^3/ul (0.8-2.9); LYMPHOCYTES % (M) 5 % (15-51); MONOCYTE #M 0.1 10^3/ul (0.3-0.9); MONOCYTES % (M) 1 % (0-11); PLATELET ESTIMATE DECREASED; SEG NEUT #M 14.6 10^3/ul (1.7-7.5); SEGMENTED NEUTROPHILS (M) % 72 % (39-77); SPHEROCYTES 1+ (0-0)
[2017-07-19 07:47] LABS: CREATININE,URINE RANDOM 25.93 mg/dl (20-320)
[2017-07-19] MEDS: ASCORBIC ACID 500 MG TAB NGT (08:45)
[2017-07-19] MEDS: ZINC SULFATE 220 MG CAP NGT (08:45)
[2017-07-19] MEDS: MULTIVITAMINS 30 ML CUP NGT (08:45)
[2017-07-19] MEDS: COLLAGENASE 30 GM TUBE TOP (08:47)
[2017-07-19] MEDS: MEROPENEM 1 GM/50ML(PMX) 50 ML IVPB ×2 (08:47→20:49)
[2017-07-19 08:55] LABS: ALANINE AMINOTRANSFERASE 52 IU/L (13-69); ALBUMIN 1.7 g/dl (3.3-4.9); ALKALINE PHOSPHATASE 88 IU/L (42-121); ANION GAP 11 (8-16); ASPARTATE AMINO TRANSFERASE 26 IU/L (15-46); BLOOD UREA NITROGEN 48 mg/dl (7-20); CALCIUM 7.1 mg/dl (8.4-10.2); CARBON DIOXIDE 30 mmol/L (21-31); CHLORIDE 103 mmol/L (97-110); CREATININE 1.37 mg/dl (0.44-1.00); GLUCOSE 130 mg/dl (70-220); SODIUM 141 mmol/L (135-144); TOTAL PROTEIN 3.8 g/dl (6.1-8.1)
[2017-07-19 08:59] LABS: POTASSIUM 2.5 mmol/L (3.5-5.1)
[2017-07-19] MEDS: METHYLPREDNISOLONE 125 MG INJ IV ×2 (13:16→18:20)
[2017-07-19 15:14] LABS: POTASSIUM 3.8 mmol/L (3.5-5.1)
[2017-07-19 15:19] LABS: AADO2 Arterial 595.3 mmHg (7.0-24.0); Allen Test ACCEPTAB; Arterial Base Excess 4.3 mmol/L (-3.0-3); Arterial Blood Gas Oxygen Sat 83.4 mmHG (95.0-98.0); Arterial COHb 0.2 % (0.0-3.0); Arterial HCO3 31.5 mmol/L (22.0-26.0); Arterial MetHb 0.3 % (0.0-1.5); Arterial Total Hemglobin 10.9 g/dl (12.0-18.0); MODE VENT - AC; Site Right Radial
[2017-07-19] MEDS ORDERED: FUROSEMIDE 20 MG INJ IV (15:30)
[2017-07-19] MEDS: ALBUMIN HUMAN 25% 50 ML IV ×2 (16:28→20:50)
[2017-07-19] MEDS: CASPOFUNGIN 50 MG in SOD CHLORIDE 0.9% 250 ML IVPB (16:29)
[2017-07-19] MEDS: FUROSEMIDE 20 MG INJ IV (18:21)
[2017-07-20] MEDS: METOCLOPRAMIDE 10 MG INJ IV ×5 (00:08→23:45)
[2017-07-20] MEDS: VANCOMYCIN HCL 250 MG/5ML POSYG PO ×5 (00:08→23:45)
[2017-07-20] MEDS: METHYLPREDNISOLONE 125 MG INJ IV ×4 (00:08→20:31)
[2017-07-20] MEDS: PANTOPRAZOLE 40 MG INJ IV ×2 (05:12→17:28)
[2017-07-20] MEDS: FUROSEMIDE 20 MG INJ IV (05:13)
[2017-07-20 05:38] LABS: ADD MAN DIFF? NO
[2017-07-20 05:42] LABS: WHITE BLOOD COUNT 17.4 10^3/ul (4.8-10.8)
[2017-07-20 05:42] LABS: ABNORMAL IP MESSAGE 1; BASOPHILS % 0.2 % (0.0-2.0); HEMATOCRIT 24.7 % (37.0-47.0); HEMOGLOBIN 8.2 g/dl (12.0-16.0); LYMPHOCYTES # 0.4 10^3/ul (0.8-2.9); LYMPHOCYTES % 2.4 % (15.0-51.0); MEAN CORPUSCULAR HEMOGLOBIN 29.2 pg (29.0-33.0); MEAN CORPUSCULAR HGB CONC 33.2 g/dl (32.0-37.0); MEAN CORPUSCULAR VOLUME 87.9 fl (82.0-101.0); MEAN PLATELET VOLUME 12.8 fl (7.4-10.4); MONOCYTE # 0.2 10^3/ul (0.3-0.9); MONOCYTES % 1.1 % (0.0-11.0); NEUTROPHIL # 16.6 10^3/ul (1.6-7.5); PLATELET COUNT 93 10^3/UL (140-415); RED BLOOD COUNT 2.81 10^6/ul (4.20-5.40); RED CELL DISTRIBUTION WIDTH 16.5 % (11.5-14.5)
[2017-07-20 06:13] LABS: ANION GAP 16 (8-16); BLOOD UREA NITROGEN 47 mg/dl (7-20); CALCIUM 7.1 mg/dl (8.4-10.2); CARBON DIOXIDE 31 mmol/L (21-31); CHLORIDE 99 mmol/L (97-110); CREATININE 1.34 mg/dl (0.44-1.00); GLUCOSE 172 mg/dl (70-220); MAGNESIUM 1.9 mg/dl (1.7-2.5); PHOSPHORUS 5.5 mg/dl (2.5-4.9); SODIUM 143 mmol/L (135-144)
[2017-07-20 06:25] LABS: POSITIVE DIFF @See below
[2017-07-20 06:26] LABS: NEUTROPHILS % 95.3 % (39.0-77.0)
[2017-07-20 06:27] LABS: POTASSIUM 2.7 mmol/L (3.5-5.1)
[2017-07-20] MEDS: SODIUM BICARBONATE (IV ADD) 150 MEQ in DEXTROSE 5% 850 ML IV ×2 (08:00→14:43)
[2017-07-20 08:23] LABS: AADO2 Arterial 309.1 mmHg (7.0-24.0); Allen Test ACCEPTAB; Arterial Base Excess 6.9 mmol/L (-3.0-3); Arterial COHb 0.3 % (0.0-3.0); Arterial Fraction of Oxyhgb 94.4 % (93.0-99.0); Arterial HCO3 33.1 mmol/L (22.0-26.0); Arterial MetHb 0.3 % (0.0-1.5); Arterial Total Hemglobin 9.4 g/dl (12.0-18.0); Arterial pCO2 57.1 mmhg (35-45); MODE VENT - AC; Site Right Radial
[2017-07-20] MEDS: MEROPENEM 1 GM/50ML(PMX) 50 ML IVPB ×2 (08:31→20:32)
[2017-07-20] MEDS: ASCORBIC ACID 500 MG TAB NGT (08:31)
[2017-07-20] MEDS: POTASSIUM CHLORIDE 20 MEQ POWDER FOR ORAL SOLN GTB (08:31)
[2017-07-20] MEDS: ZINC SULFATE 220 MG CAP NGT (08:31)
[2017-07-20] MEDS: MULTIVITAMINS 30 ML CUP NGT (08:32)
[2017-07-20] MEDS: ALBUMIN HUMAN 25% 50 ML IV ×3 (08:45→20:31)
[2017-07-20] MEDS: POTASSIUM CHLORIDE 50 ML IVPB ×4 (10:33→19:52)
[2017-07-20] MEDS: MAGNESIUM SULFATE 2 GM/50 ML 50 ML IVPB (10:36)
[2017-07-20] MEDS: COLLAGENASE 30 GM TUBE TOP (10:42)
[2017-07-20 14:52] LABS: ADD UMIC YES; UR AMORPHOUS CRYSTAL FEW /HPF (NONE SEEN); UR ASCORBIC ACID NEGATIVE (NEGATIVE); UR BACTERIA FEW /HPF (NONE SEEN); UR BILIRUBIN (Dip) NEGATIVE (NEGATIVE); UR BLOOD (Dip) 1+ mg/dL (NEGATIVE); UR CLARITY CLOUDY (CLEAR); UR COLOR YELLOW (YELLOW); UR GLUCOSE (Dip) NEGATIVE (NEGATIVE); UR GRANULAR CAST FEW /HPF (NONE SEEN); UR KETONES (Dip) NEGATIVE (NEGATIVE); UR LEUKOCYTE ESTERASE (Dip) NEGATIVE Leu/ul (NEGATIVE); UR NITRITE (Dip) NEGATIVE (NEGATIVE); UR RBC 13 /HPF (0-5); UR TOTAL PROTEIN (Dip) NEGATIVE (NEGATIVE); UR UROBILINOGEN (Dip) NEGATIVE (NEGATIVE); UR WBC 5 /HPF (0-5)
[2017-07-20 15:46] LABS: SODIUM,URINE RANDOM 68 mmol/L (30-90)
[2017-07-20 15:49] LABS: CREATININE,URINE RANDOM < 12.40 mg/dl (20-320)
[2017-07-20 16:05] LABS: ANION GAP 14 (8-16); BLOOD UREA NITROGEN 47 mg/dl (7-20); CALCIUM 7.5 mg/dl (8.4-10.2); CARBON DIOXIDE 33 mmol/L (21-31); CHLORIDE 98 mmol/L (97-110); GLUCOSE 114 mg/dl (70-220); POTASSIUM 3.5 mmol/L (3.5-5.1); SODIUM 141 mmol/L (135-144)
[2017-07-20] MEDS: CASPOFUNGIN 50 MG in SOD CHLORIDE 0.9% 250 ML IVPB (16:20)
[2017-07-20] MEDS: HYDROmorphONE 0.5 MG/0.5 ML SYG IV (22:24)
[2017-07-21] MEDS: SODIUM BICARBONATE (IV ADD) 150 MEQ in DEXTROSE 5% 850 ML IV (02:29)
[2017-07-21 05:12] LABS: ADD MAN DIFF? NO
[2017-07-21 05:18] LABS: ABNORMAL IP MESSAGE 1; BASOPHILS % 0.1 % (0.0-2.0); HEMATOCRIT 20.7 % (37.0-47.0); LYMPHOCYTES # 0.5 10^3/ul (0.8-2.9); LYMPHOCYTES % 3.3 % (15.0-51.0); MEAN CORPUSCULAR HEMOGLOBIN 28.8 pg (29.0-33.0); MEAN CORPUSCULAR HGB CONC 32.9 g/dl (32.0-37.0); MEAN CORPUSCULAR VOLUME 87.7 fl (82.0-101.0); MEAN PLATELET VOLUME 13.3 fl (7.4-10.4); MONOCYTE # 0.2 10^3/ul (0.3-0.9); MONOCYTES % 1.7 % (0.0-11.0); NEUTROPHIL # 13.3 10^3/ul (1.6-7.5); NEUTROPHILS % 94.3 % (39.0-77.0); PLATELET COUNT 94 10^3/UL (140-415); RED BLOOD COUNT 2.36 10^6/ul (4.20-5.40); RED CELL DISTRIBUTION WIDTH 16.6 % (11.5-14.5)
[2017-07-21 05:18] LABS: WHITE BLOOD COUNT 14.1 10^3/ul (4.8-10.8)
[2017-07-21 05:23] LABS: HEMOGLOBIN 6.8 g/dl (12.0-16.0); POSITIVE DIFF @See below
[2017-07-21] MEDS: PANTOPRAZOLE 40 MG INJ IV ×2 (05:38→18:06)
[2017-07-21] MEDS: VANCOMYCIN HCL 250 MG/5ML POSYG PO ×3 (05:38→18:06)
[2017-07-21] MEDS: METOCLOPRAMIDE 10 MG INJ IV ×3 (05:39→18:06)
[2017-07-21 06:13] LABS: BLOOD UREA NITROGEN 43 mg/dl (7-20); CALCIUM 6.5 mg/dl (8.4-10.2); CHLORIDE 92 mmol/L (97-110); CREATININE 1.18 mg/dl (0.44-1.00); GLUCOSE 345 mg/dl (70-220); PHOSPHORUS 4.3 mg/dl (2.5-4.9); SODIUM 140 mmol/L (135-144)
[2017-07-21 06:49] LABS: ANION GAP 9 (8-16)
[2017-07-21 06:51] LABS: POTASSIUM 2.7 mmol/L (3.5-5.1)
[2017-07-21 06:52] LABS: CARBON DIOXIDE 42 mmol/L (21-31)
[2017-07-21] MEDS ORDERED: EPINEPHrine 0.1 MG/ML SYG (07:00)
[2017-07-21] MEDS ORDERED: MAGNESIUM SULFATE 1 GM/100 ML D5W IVPB (07:00)
[2017-07-21] MEDS: POTASSIUM CHLORIDE 50 ML IVPB ×3 (07:14→11:20)
[2017-07-21] MEDS ORDERED: POTASSIUM CHLORIDE 20 MEQ POWDER FOR ORAL SOLN NGT ×2 (08:30→13:00)
[2017-07-21] MEDS: MULTIVITAMINS 30 ML CUP NGT (09:20)
[2017-07-21] MEDS: POTASSIUM CHLORIDE 20 MEQ POWDER FOR ORAL SOLN NGT ×2 (09:20→15:21)
[2017-07-21] MEDS: ASCORBIC ACID 500 MG TAB NGT (09:20)
[2017-07-21] MEDS: MEROPENEM 1 GM/50ML(PMX) 50 ML IVPB ×2 (09:21→20:30)
[2017-07-21] MEDS: METHYLPREDNISOLONE 125 MG INJ IV ×2 (09:21→20:30)
[2017-07-21] MEDS: ZINC SULFATE 220 MG CAP NGT (09:21)
[2017-07-21] MEDS: ALBUMIN HUMAN 25% 50 ML IV (09:29)
[2017-07-21] MEDS: COLLAGENASE 30 GM TUBE TOP (09:54)
[2017-07-21 13:12] LABS: ANION GAP 15 (8-16); BLOOD UREA NITROGEN 47 mg/dl (7-20); CALCIUM 7.2 mg/dl (8.4-10.2); CARBON DIOXIDE 35 mmol/L (21-31); CHLORIDE 96 mmol/L (97-110); CREATININE 1.19 mg/dl (0.44-1.00); GLUCOSE 104 mg/dl (70-220); POTASSIUM 3.9 mmol/L (3.5-5.1); SODIUM 142 mmol/L (135-144)
[2017-07-21 15:02] LABS: CREATININE, RANDOM URINE 17 mg/dL (20-320); MICROALBUMIN 4.8 mg/dL; MICROALBUMIN/CREATININE RATIO 282 (<30)
[2017-07-21 15:46] LABS: IMMEDIATE SPIN CROSSMATCH 1 2
[2017-07-21] MEDS: CASPOFUNGIN 50 MG in SOD CHLORIDE 0.9% 250 ML IVPB (16:07)
[2017-07-21 16:10] LABS: ANION GAP 12 (8-16); BLOOD UREA NITROGEN 45 mg/dl (7-20); CALCIUM 7.4 mg/dl (8.4-10.2); CARBON DIOXIDE 36 mmol/L (21-31); CHLORIDE 97 mmol/L (97-110); GLUCOSE 99 mg/dl (70-220); POTASSIUM 3.5 mmol/L (3.5-5.1); SODIUM 141 mmol/L (135-144)
[2017-07-21] MEDS: FUROSEMIDE 20 MG INJ IV (18:06)
[2017-07-22] MEDS: VANCOMYCIN HCL 250 MG/5ML POSYG PO ×2 (00:52→06:16)
[2017-07-22] MEDS: METOCLOPRAMIDE 10 MG INJ IV ×4 (00:53→18:00)
[2017-07-22] MEDS: TOBRAMYCIN/0.25NS 300 MG/5 ML INHAL NEB (03:42)
[2017-07-22 05:24] LABS: ADD MAN DIFF? NO
[2017-07-22 05:28] LABS: WHITE BLOOD COUNT 19.4 10^3/ul (4.8-10.8)
[2017-07-22 05:28] LABS: ABNORMAL IP MESSAGE 1; BASOPHILS % 0.2 % (0.0-2.0); HEMATOCRIT 27.7 % (37.0-47.0); HEMOGLOBIN 9.2 g/dl (12.0-16.0); LYMPHOCYTES # 0.3 10^3/ul (0.8-2.9); LYMPHOCYTES % 1.6 % (15.0-51.0); MEAN CORPUSCULAR HGB CONC 33.2 g/dl (32.0-37.0); MEAN CORPUSCULAR VOLUME 87.4 fl (82.0-101.0); MEAN PLATELET VOLUME 12.7 fl (7.4-10.4); MONOCYTE # 0.3 10^3/ul (0.3-0.9); MONOCYTES % 1.7 % (0.0-11.0); NEUTROPHIL # 18.6 10^3/ul (1.6-7.5); PLATELET COUNT 108 10^3/UL (140-415); RED BLOOD COUNT 3.17 10^6/ul (4.20-5.40); RED CELL DISTRIBUTION WIDTH 16.8 % (11.5-14.5)
[2017-07-22 05:36] LABS: NEUTROPHILS % 95.8 % (39.0-77.0); POSITIVE DIFF @See below
[2017-07-22 05:57] LABS: ALANINE AMINOTRANSFERASE 35 IU/L (13-69); ALBUMIN 2.2 g/dl (3.3-4.9); ALBUMIN/GLOBULIN RATIO 1.22; ALKALINE PHOSPHATASE 123 IU/L (42-121); ANION GAP 16 (8-16); ASPARTATE AMINO TRANSFERASE 22 IU/L (15-46); BILIRUBIN,INDIRECT 0.1 mg/dl (0-1.1); BILIRUBIN,TOTAL 0.1 mg/dl (0.2-1.3); BLOOD UREA NITROGEN 46 mg/dl (7-20); CALCIUM 7.4 mg/dl (8.4-10.2); CARBON DIOXIDE 34 mmol/L (21-31); CHLORIDE 100 mmol/L (97-110); CREATININE 1.32 mg/dl (0.44-1.00); GLUCOSE 100 mg/dl (70-220); MAGNESIUM 2.2 mg/dl (1.7-2.5); POTASSIUM 3.5 mmol/L (3.5-5.1); SODIUM 146 mmol/L (135-144)
[2017-07-22] MEDS: FUROSEMIDE 20 MG INJ IV ×2 (06:15→18:15)
[2017-07-22] MEDS: PANTOPRAZOLE 40 MG INJ IV ×2 (06:15→18:15)
[2017-07-22] MEDS: ASCORBIC ACID 500 MG TAB NGT (09:26)
[2017-07-22] MEDS: METHYLPREDNISOLONE 125 MG INJ IV (09:26)
[2017-07-22] MEDS: MULTIVITAMINS 30 ML CUP NGT (09:26)
[2017-07-22] MEDS: ZINC SULFATE 220 MG CAP NGT (09:26)
[2017-07-22] MEDS: MEROPENEM 1 GM/50ML(PMX) 50 ML IVPB (09:26)
[2017-07-22] MEDS: COLLAGENASE 30 GM TUBE TOP (09:27)
[2017-07-22] MEDS ORDERED: CEFEPIME 1GM/50 ML (PMX) 50 ML IVPB (11:00)
[2017-07-22] MEDS: LEVOFLOXACIN 500MG/D5W (PMX) 100 ML IVPB (12:50)
[2017-07-22] MEDS: CEFTAZIDIME 1GM/50 ML (PMX) 50 ML IVPB (14:09)
[2017-07-22] MEDS: METHYLPREDNISOLONE 40 MG INJ IV (21:11)
[2017-07-22] MEDS: NORepinephrine 8MG/250 ML (PMX 250 ML IV (22:32)
[2017-07-23] MEDS: PANTOPRAZOLE 40 MG INJ IV ×2 (06:16→17:43)
[2017-07-23] MEDS: METOCLOPRAMIDE 10 MG INJ IV ×5 (06:16→23:59)
[2017-07-23] MEDS: FUROSEMIDE 20 MG INJ IV ×2 (06:16→17:43)
[2017-07-23 06:32] LABS: ABNORMAL IP MESSAGE 1; HEMATOCRIT 27.3 % (37.0-47.0); HEMOGLOBIN 8.9 g/dl (12.0-16.0); MEAN CORPUSCULAR HEMOGLOBIN 29.1 pg (29.0-33.0); MEAN CORPUSCULAR HGB CONC 32.6 g/dl (32.0-37.0); MEAN CORPUSCULAR VOLUME 89.2 fl (82.0-101.0); PLATELET COUNT 119 10^3/UL (140-415); RED BLOOD COUNT 3.06 10^6/ul (4.20-5.40); RED CELL DISTRIBUTION WIDTH 17.1 % (11.5-14.5)
[2017-07-23 06:32] LABS: WHITE BLOOD COUNT 20.8 10^3/ul (4.8-10.8)
[2017-07-23 06:47] LABS: POSITIVE DIFF @See below
[2017-07-23 06:48] LABS: ADD MAN DIFF? YES
[2017-07-23 06:50] LABS: ANION GAP 14 (8-16); BLOOD UREA NITROGEN 50 mg/dl (7-20); CALCIUM 7.3 mg/dl (8.4-10.2); CARBON DIOXIDE 34 mmol/L (21-31); CHLORIDE 101 mmol/L (97-110); CREATININE 1.37 mg/dl (0.44-1.00); GLUCOSE 123 mg/dl (70-220); POTASSIUM 3.1 mmol/L (3.5-5.1); SODIUM 146 mmol/L (135-144)
[2017-07-23 07:12] LABS: MAGNESIUM 2.1 mg/dl (1.7-2.5)
[2017-07-23] MEDS: TOBRAMYCIN/0.25NS 300 MG/5 ML INHAL NEB ×2 (08:08→19:49)
[2017-07-23 08:12] LABS: ANISOCYTOSIS 1+ (0-0); BAND NEUTROPHILS #M 1.8 10^3/ul (0.0-0.6); BAND NEUTROPHILS % (M) 9 % (0-4); HYPOCHROMASIA 1+ (0-0); LYMPHOCYTES #M 0.4 10^3/ul (0.8-2.9); LYMPHOCYTES % (M) 2 % (15-51); METAMYELOCYTES #M 0.2 10^3/ul (0.0-0.0); METAMYELOCYTES %M 1 % (0-0); MONOCYTE #M 0.6 10^3/ul (0.3-0.9); MONOCYTES % (M) 3 % (0-11); MYELOCYTES #M 0.2 10^3/ul (0.0-0.0); MYELOCYTES % (M) 1 % (0-0); PLATELET ESTIMATE DECREASED; SEG NEUT #M 17.8 10^3/ul (1.7-7.5); SEGMENTED NEUTROPHILS (M) % 84 % (39-77)
[2017-07-23] MEDS: ASCORBIC ACID 500 MG TAB NGT (08:56)
[2017-07-23] MEDS: METHYLPREDNISOLONE 40 MG INJ IV ×2 (08:56→21:44)
[2017-07-23] MEDS: MULTIVITAMINS 30 ML CUP NGT (08:56)
[2017-07-23] MEDS: ZINC SULFATE 220 MG CAP NGT (08:56)
[2017-07-23] MEDS: COLLAGENASE 30 GM TUBE TOP (09:00)
[2017-07-23 09:19] LABS: AADO2 Arterial 298.2 mmHg (7.0-24.0); Allen Test ACCEPTAB; Arterial Base Excess 7.4 mmol/L (-3.0-3); Arterial Blood Gas Oxygen Sat 95.6 mmHG (95.0-98.0); Arterial COHb 0.3 % (0.0-3.0); Arterial MetHb 0.3 % (0.0-1.5); Arterial Total Hemglobin 8.4 g/dl (12.0-18.0); Arterial pCO2 39.8 mmhg (35-45); MODE VENT - AC; Site Right Radial
[2017-07-23] MEDS: POTASSIUM CHLORIDE 50 ML IVPB (10:52)
[2017-07-23] MEDS: CEFTAZIDIME 1GM/50 ML (PMX) 50 ML IVPB (12:49)
[2017-07-23] MEDS ORDERED: POTASSIUM CHLORIDE (SR) 20 MEQ TAB PO (13:58)
[2017-07-23] MEDS: POTASSIUM CHLORIDE 20 MEQ POWDER FOR ORAL SOLN NGT (15:05)
[2017-07-23] MEDS: ALBUMIN HUMAN 5% 250 ML IV ×2 (15:07→21:44)
[2017-07-23] MEDS ORDERED: ALBUMIN HUMAN 5% 250 ML IV (21:00)
[2017-07-24] MEDS: NORepinephrine 8MG/250 ML (PMX 250 ML IV (00:01)
[2017-07-24 05:25] LABS: ADD MAN DIFF? NO
[2017-07-24 05:34] LABS: ABNORMAL IP MESSAGE 1; BASOPHILS % 0.1 % (0.0-2.0); HEMATOCRIT 23.8 % (37.0-47.0); HEMOGLOBIN 7.6 g/dl (12.0-16.0); LYMPHOCYTES # 0.4 10^3/ul (0.8-2.9); LYMPHOCYTES % 3.5 % (15.0-51.0); MEAN CORPUSCULAR HEMOGLOBIN 28.6 pg (29.0-33.0); MEAN CORPUSCULAR HGB CONC 31.9 g/dl (32.0-37.0); MEAN CORPUSCULAR VOLUME 89.5 fl (82.0-101.0); MONOCYTE # 0.2 10^3/ul (0.3-0.9); NEUTROPHIL # 10.9 10^3/ul (1.6-7.5); PLATELET COUNT 103 10^3/UL (140-415); RED BLOOD COUNT 2.66 10^6/ul (4.20-5.40); RED CELL DISTRIBUTION WIDTH 17.2 % (11.5-14.5)
[2017-07-24 05:34] LABS: WHITE BLOOD COUNT 11.6 10^3/ul (4.8-10.8)
[2017-07-24] MEDS: METOCLOPRAMIDE 10 MG INJ IV ×4 (05:37→23:16)
[2017-07-24] MEDS: PANTOPRAZOLE 40 MG INJ IV ×2 (05:37→17:36)
[2017-07-24] MEDS: FUROSEMIDE 20 MG INJ IV ×2 (05:37→17:36)
[2017-07-24 05:41] LABS: POSITIVE DIFF @See below
[2017-07-24 06:00] LABS: ANION GAP 15 (8-16); BLOOD UREA NITROGEN 54 mg/dl (7-20); CALCIUM 7.4 mg/dl (8.4-10.2); CARBON DIOXIDE 35 mmol/L (21-31); CHLORIDE 103 mmol/L (97-110); CREATININE 1.41 mg/dl (0.44-1.00); GLUCOSE 109 mg/dl (70-220); MAGNESIUM 2.2 mg/dl (1.7-2.5); PHOSPHORUS 4.7 mg/dl (2.5-4.9); POTASSIUM 3.6 mmol/L (3.5-5.1); SODIUM 149 mmol/L (135-144)
[2017-07-24] MEDS: MULTIVITAMINS 30 ML CUP NGT (08:37)
[2017-07-24] MEDS: ALBUMIN HUMAN 5% 250 ML IV (08:37)
[2017-07-24] MEDS: METHYLPREDNISOLONE 40 MG INJ IV ×2 (08:38→20:02)
[2017-07-24] MEDS: ASCORBIC ACID 500 MG TAB NGT (08:38)
[2017-07-24] MEDS: ZINC SULFATE 220 MG CAP NGT (08:38)
[2017-07-24] MEDS: COLLAGENASE 30 GM TUBE TOP (08:41)
[2017-07-24] MEDS: POTASSIUM CHLORIDE 50 ML IVPB ×2 (09:01→10:19)
[2017-07-24] MEDS: TOBRAMYCIN/0.25NS 300 MG/5 ML INHAL NEB ×2 (09:18→19:39)
[2017-07-24] MEDS: METOLAZONE 5 MG TAB PO (10:28)
[2017-07-24] MEDS: LEVOFLOXACIN 500MG/D5W (PMX) 100 ML IVPB (12:15)
[2017-07-24 13:40] LABS: IMMEDIATE SPIN CROSSMATCH 1 1
[2017-07-24] MEDS: CEFTAZIDIME 1GM/50 ML (PMX) 50 ML IVPB (13:57)
[2017-07-24] MEDS: HYDROmorphONE 0.5 MG/0.5 ML SYG IV (14:39)
[2017-07-25] MEDS: PANTOPRAZOLE 40 MG INJ IV ×2 (05:47→17:55)
[2017-07-25] MEDS: METOCLOPRAMIDE 10 MG INJ IV ×3 (05:48→17:55)
[2017-07-25] MEDS: FUROSEMIDE 20 MG INJ IV ×2 (05:48→17:55)
[2017-07-25 05:49] LABS: ADD MAN DIFF? NO
[2017-07-25 06:08] LABS: WHITE BLOOD COUNT 13.1 10^3/ul (4.8-10.8)
[2017-07-25 06:08] LABS: BASOPHILS % 0.2 % (0.0-2.0); EOSINOPHILS % 0.1 % (0.0-7.0); HEMATOCRIT 29.4 % (37.0-47.0); HEMOGLOBIN 9.8 g/dl (12.0-16.0); LYMPHOCYTES # 0.6 10^3/ul (0.8-2.9); LYMPHOCYTES % 4.9 % (15.0-51.0); MEAN CORPUSCULAR HEMOGLOBIN 31.2 pg (29.0-33.0); MEAN CORPUSCULAR HGB CONC 33.3 g/dl (32.0-37.0); MEAN CORPUSCULAR VOLUME 93.6 fl (82.0-101.0); MEAN PLATELET VOLUME 12.9 fl (7.4-10.4); MONOCYTE # 0.3 10^3/ul (0.3-0.9); NEUTROPHIL # 12.1 10^3/ul (1.6-7.5); PLATELET COUNT 110 10^3/UL (140-415); RED BLOOD COUNT 3.14 10^6/ul (4.20-5.40); RED CELL DISTRIBUTION WIDTH 19.5 % (11.5-14.5)
[2017-07-25 06:16] LABS: NEUTROPHILS % 92.1 % (39.0-77.0); POSITIVE DIFF @See below
[2017-07-25 06:39] LABS: ANION GAP 14 (8-16); BLOOD UREA NITROGEN 58 mg/dl (7-20); CALCIUM 7.5 mg/dl (8.4-10.2); CARBON DIOXIDE 35 mmol/L (21-31); CHLORIDE 103 mmol/L (97-110); CREATININE 1.39 mg/dl (0.44-1.00); GLUCOSE 115 mg/dl (70-220); MAGNESIUM 2.1 mg/dl (1.7-2.5); PHOSPHORUS 4.6 mg/dl (2.5-4.9); POTASSIUM 3.3 mmol/L (3.5-5.1); SODIUM 149 mmol/L (135-144)
[2017-07-25 08:15] LABS: AADO2 Arterial 217.8 mmHg (7.0-24.0); Allen Test ACCEPTAB; Arterial Blood Gas Oxygen Sat 96.9 mmHG (95.0-98.0); Arterial COHb 0.3 % (0.0-3.0); Arterial Fraction of Oxyhgb 96.3 % (93.0-99.0); Arterial HCO3 31.3 mmol/L (22.0-26.0); Arterial MetHb 0.3 % (0.0-1.5); Arterial Total Hemglobin 10.1 g/dl (12.0-18.0); Arterial pCO2 38.7 mmhg (35-45); MODE VENT - AC; Site Right Radial
[2017-07-25] MEDS: METHYLPREDNISOLONE 40 MG INJ IV ×2 (08:54→21:45)
[2017-07-25] MEDS: POTASSIUM CHLORIDE 20 MEQ POWDER FOR ORAL SOLN NGT (08:54)
[2017-07-25] MEDS: MULTIVITAMINS 30 ML CUP NGT (08:54)
[2017-07-25] MEDS: ASCORBIC ACID 500 MG TAB NGT (08:55)
[2017-07-25] MEDS: ZINC SULFATE 220 MG CAP NGT (08:55)
[2017-07-25] MEDS: POTASSIUM CHLORIDE 50 ML IVPB ×3 (09:07→13:54)
[2017-07-25] MEDS: METOLAZONE 5 MG TAB PO (09:07)
[2017-07-25] MEDS: COLLAGENASE 30 GM TUBE TOP (09:08)
[2017-07-25] MEDS: TOBRAMYCIN/0.25NS 300 MG/5 ML INHAL NEB ×2 (09:31→20:59)
[2017-07-25] MEDS: CEFTAZIDIME 1GM/50 ML (PMX) 50 ML IVPB (13:28)
[2017-07-25] MEDS: NORepinephrine 8MG/250 ML (PMX 250 ML IV (14:40)
[2017-07-26] MEDS: METOCLOPRAMIDE 10 MG INJ IV ×4 (01:41→18:20)
[2017-07-26] MEDS: FUROSEMIDE 20 MG INJ IV ×2 (05:44→18:20)
[2017-07-26] MEDS: COLLAGENASE 30 GM TUBE TOP (05:44)
[2017-07-26] MEDS: PANTOPRAZOLE 40 MG INJ IV ×2 (05:44→18:19)
[2017-07-26 05:52] LABS: ABNORMAL IP MESSAGE 1; HEMATOCRIT 26.7 % (37.0-47.0); HEMOGLOBIN 8.6 g/dl (12.0-16.0); MEAN CORPUSCULAR HEMOGLOBIN 30.8 pg (29.0-33.0); MEAN CORPUSCULAR HGB CONC 32.2 g/dl (32.0-37.0); MEAN CORPUSCULAR VOLUME 95.7 fl (82.0-101.0); MEAN PLATELET VOLUME 12.9 fl (7.4-10.4); PLATELET COUNT 95 10^3/UL (140-415); RED BLOOD COUNT 2.79 10^6/ul (4.20-5.40); RED CELL DISTRIBUTION WIDTH 17.3 % (11.5-14.5)
[2017-07-26 05:52] LABS: WHITE BLOOD COUNT 11.5 10^3/ul (4.8-10.8)
[2017-07-26 05:56] LABS: POSITIVE DIFF @See below
[2017-07-26 05:57] LABS: ADD MAN DIFF? YES
[2017-07-26 06:39] LABS: ANION GAP 11 (8-16); BLOOD UREA NITROGEN 62 mg/dl (7-20); CALCIUM 7.5 mg/dl (8.4-10.2); CARBON DIOXIDE 36 mmol/L (21-31); CHLORIDE 102 mmol/L (97-110); CREATININE 1.57 mg/dl (0.44-1.00); GLUCOSE 114 mg/dl (70-220); MAGNESIUM 2.1 mg/dl (1.7-2.5); PHOSPHORUS 5.1 mg/dl (2.5-4.9); POTASSIUM 3.2 mmol/L (3.5-5.1); SODIUM 146 mmol/L (135-144)
[2017-07-26 07:43] LABS: ANISOCYTOSIS 1+ (0-0); BAND NEUTROPHILS #M 2.1 10^3/ul (0.0-0.6); BAND NEUTROPHILS % (M) 19 % (0-4); GIANT THROMBO% (M) 1 % (0-0); MICROCYTOSIS 1+ (0-0); MONOCYTE #M 0.2 10^3/ul (0.3-0.9); MONOCYTES % (M) 2 % (0-11); PLATELET ESTIMATE NORMAL; SEG NEUT #M 9.3 10^3/ul (1.7-7.5); SEGMENTED NEUTROPHILS (M) % 79 % (39-77); SMUDGE%M 3 % (0-0); TARGET CELLS 1+ (0-0)
[2017-07-26 08:06] LABS: AADO2 Arterial 164.5 mmHg (7.0-24.0); Allen Test ACCEPTAB; Arterial Base Excess 9.2 mmol/L (-3.0-3); Arterial Blood Gas Oxygen Sat 92.1 mmHG (95.0-98.0); Arterial COHb 0.3 % (0.0-3.0); Arterial Fraction of Oxyhgb 91.5 % (93.0-99.0); Arterial HCO3 34.6 mmol/L (22.0-26.0); Arterial MetHb 0.3 % (0.0-1.5); Arterial Total Hemglobin 10.9 g/dl (12.0-18.0); Arterial pCO2 51.4 mmhg (35-45); Blood Gas PS 16; MODE VENT - SIMV; Site Right Radial
[2017-07-26] MEDS: ZINC SULFATE 220 MG CAP NGT (08:29)
[2017-07-26] MEDS: MULTIVITAMINS 30 ML CUP NGT (08:29)
[2017-07-26] MEDS: ASCORBIC ACID 500 MG TAB NGT (08:29)
[2017-07-26] MEDS: POTASSIUM CHLORIDE 20 MEQ POWDER FOR ORAL SOLN GTB (08:29)
[2017-07-26] MEDS: METHYLPREDNISOLONE 40 MG INJ IV ×2 (08:30→20:24)
[2017-07-26] MEDS: POTASSIUM CHLORIDE 50 ML IVPB ×3 (09:04→11:14)
[2017-07-26] MEDS: TOBRAMYCIN/0.25NS 300 MG/5 ML INHAL NEB ×2 (09:12→20:37)
[2017-07-26 09:37] LABS: ANION GAP 14 (8-16); BLOOD UREA NITROGEN 61 mg/dl (7-20); CALCIUM 7.4 mg/dl (8.4-10.2); CARBON DIOXIDE 34 mmol/L (21-31); CHLORIDE 102 mmol/L (97-110); CREATININE 1.61 mg/dl (0.44-1.00); GLUCOSE 117 mg/dl (70-220); POTASSIUM 3.3 mmol/L (3.5-5.1); SODIUM 147 mmol/L (135-144)
[2017-07-26] MEDS: ACETAZOLAMIDE 500 MG INJ IV (10:20)
[2017-07-26] MEDS: LEVOFLOXACIN 500MG/D5W (PMX) 100 ML IVPB (12:25)
[2017-07-26] MEDS: CEFTAZIDIME 1GM/50 ML (PMX) 50 ML IVPB (13:20)
[2017-07-26] MEDS: HYDROmorphONE 2 MG TAB NGT (18:20)
[2017-07-26] MEDS: ALBUMIN HUMAN 5% 250 ML IV (20:24)
[2017-07-27] MEDS: METOCLOPRAMIDE 10 MG INJ IV ×4 (01:11→18:00)
[2017-07-27 05:36] LABS: WHITE BLOOD COUNT 6.5 10^3/ul (4.8-10.8)
[2017-07-27 05:36] LABS: ABNORMAL IP MESSAGE 1; HEMATOCRIT 24.1 % (37.0-47.0); HEMOGLOBIN 7.7 g/dl (12.0-16.0); MEAN CORPUSCULAR HEMOGLOBIN 31.2 pg (29.0-33.0); MEAN CORPUSCULAR VOLUME 97.6 fl (82.0-101.0); MEAN PLATELET VOLUME 12.6 fl (7.4-10.4); PLATELET COUNT 71 10^3/UL (140-415); RED BLOOD COUNT 2.47 10^6/ul (4.20-5.40); RED CELL DISTRIBUTION WIDTH 17.2 % (11.5-14.5)
[2017-07-27] MEDS: FUROSEMIDE 20 MG INJ IV (05:44)
[2017-07-27] MEDS: PANTOPRAZOLE 40 MG INJ IV ×2 (05:45→17:59)
[2017-07-27 06:01] LABS: INR 1.17; PROTIME 15.1 Sec (11.9-14.9); PT RATIO 1.2
[2017-07-27 06:13] LABS: ALANINE AMINOTRANSFERASE 30 IU/L (13-69); ALBUMIN 2.1 g/dl (3.3-4.9); ALBUMIN/GLOBULIN RATIO 1.05; ALKALINE PHOSPHATASE 135 IU/L (42-121); ANION GAP 12 (8-16); ASPARTATE AMINO TRANSFERASE 18 IU/L (15-46); B-TYPE NATRIURETIC PEPTIDE 2210 PG/ML (0-125); BLOOD UREA NITROGEN 59 mg/dl (7-20); CALCIUM 7.6 mg/dl (8.4-10.2); CARBON DIOXIDE 35 mmol/L (21-31); CHLORIDE 102 mmol/L (97-110); CREATININE 1.92 mg/dl (0.44-1.00); GLUCOSE 130 mg/dl (70-220); MAGNESIUM 2.1 mg/dl (1.7-2.5); POTASSIUM 3.1 mmol/L (3.5-5.1); SODIUM 146 mmol/L (135-144); TOTAL PROTEIN 4.1 g/dl (6.1-8.1)
[2017-07-27 06:30] LABS: ADD MAN DIFF? YES; POSITIVE DIFF @See below
[2017-07-27] MEDS: METHYLPREDNISOLONE 40 MG INJ IV ×2 (09:20→20:36)
[2017-07-27] MEDS: POTASSIUM CHLORIDE 20 MEQ POWDER FOR ORAL SOLN NGT (09:20)
[2017-07-27] MEDS: MULTIVITAMINS 30 ML CUP NGT (09:20)
[2017-07-27] MEDS: ZINC SULFATE 220 MG CAP NGT (09:21)
[2017-07-27] MEDS: ASCORBIC ACID 500 MG TAB NGT (09:21)
[2017-07-27] MEDS: COLLAGENASE 30 GM TUBE TOP (09:21)
[2017-07-27] MEDS: ALBUMIN HUMAN 5% 250 ML IV ×3 (09:39→20:37)
[2017-07-27 10:01] LABS: ANISOCYTOSIS 1+ (0-0); BAND NEUTROPHILS #M 1.3 10^3/ul (0.0-0.6); BAND NEUTROPHILS % (M) 21 % (0-4); ERYTHROBLAST% (NRBC) (M) 1 % (0-0); GIANT THROMBO% (M) 1 % (0-0); LYMPHOCYTES #M 0.5 10^3/ul (0.8-2.9); LYMPHOCYTES % (M) 9 % (15-51); MICROCYTOSIS 1+ (0-0); MONOCYTE #M 0.1 10^3/ul (0.3-0.9); MONOCYTES % (M) 2 % (0-11); PLATELET ESTIMATE SIG DECREASED; POLYCHROMASIA 1+ (0-0); SEG NEUT #M 4.5 10^3/ul (1.7-7.5); SEGMENTED NEUTROPHILS (M) % 68 % (39-77); SMUDGE%M 8 % (0-0)
[2017-07-27] MEDS: TOBRAMYCIN/0.25NS 300 MG/5 ML INHAL NEB ×2 (11:04→22:01)
[2017-07-27] MEDS: HYDROmorphONE 2 MG TAB NGT (11:10)
[2017-07-27] MEDS: METOLAZONE 5 MG TAB PO (11:12)
[2017-07-27] MEDS: CEFTAZIDIME 1GM/50 ML (PMX) 50 ML IVPB (13:08)
[2017-07-27] MEDS: POTASSIUM CHLORIDE 50 ML IVPB ×3 (13:08→15:55)
[2017-07-27] MEDS ORDERED: ERYTHROMYCIN BASE (EC) 250 MG TAB PO (22:00)
[2017-07-28] MEDS: METOCLOPRAMIDE 10 MG INJ IV ×4 (00:44→18:00)
[2017-07-28] MEDS: PANTOPRAZOLE 40 MG INJ IV ×2 (05:46→18:03)
[2017-07-28 05:58] LABS: ABNORMAL IP MESSAGE 1; HEMATOCRIT 27.4 % (37.0-47.0); HEMOGLOBIN 8.3 g/dl (12.0-16.0); MEAN CORPUSCULAR HGB CONC 30.3 g/dl (32.0-37.0); MEAN CORPUSCULAR VOLUME 95.8 fl (82.0-101.0); MEAN PLATELET VOLUME 12.2 fl (7.4-10.4); PLATELET COUNT 85 10^3/UL (140-415); RED BLOOD COUNT 2.86 10^6/ul (4.20-5.40); RED CELL DISTRIBUTION WIDTH 15.5 % (11.5-14.5)
[2017-07-28 05:59] LABS: POSITIVE DIFF @See below
[2017-07-28 06:00] LABS: ADD MAN DIFF? YES
[2017-07-28 06:05] LABS: PLATELET COUNT 80 10^3/UL (140-415)
[2017-07-28 06:26] LABS: INR 1.12; PARTIAL THROMBOPLASTIN TIME 29.2 Sec (25.0-35.0); PROTIME 14.6 Sec (11.9-14.9); PT RATIO 1.1
[2017-07-28 06:27] LABS: THROMBIN TIME 15.1 SEC (13.8-19.1)
[2017-07-28 06:34] LABS: FIBRIN SPLIT PRODUCT <10 ug/ml (<10)
[2017-07-28 07:01] LABS: B-TYPE NATRIURETIC PEPTIDE 2230 PG/ML (0-125)
[2017-07-28 07:04] LABS: ALANINE AMINOTRANSFERASE 36 IU/L (13-69); ALBUMIN 2.6 g/dl (3.3-4.9); ALKALINE PHOSPHATASE 148 IU/L (42-121); ANION GAP 12 (8-16); ASPARTATE AMINO TRANSFERASE 23 IU/L (15-46); BLOOD UREA NITROGEN 59 mg/dl (7-20); CALCIUM 7.9 mg/dl (8.4-10.2); CARBON DIOXIDE 34 mmol/L (21-31); CHLORIDE 103 mmol/L (97-110); CREATININE 1.73 mg/dl (0.44-1.00); GLUCOSE 117 mg/dl (70-220); MAGNESIUM 2.2 mg/dl (1.7-2.5); POTASSIUM 3.7 mmol/L (3.5-5.1); SODIUM 145 mmol/L (135-144); TOTAL PROTEIN 4.6 g/dl (6.1-8.1)
[2017-07-28 07:20] LABS: D-DIMER 7934.89 ng/ml (<460)
[2017-07-28 08:19] LABS: ANISOCYTOSIS 2+ (0-0); BAND NEUTROPHILS #M 1.2 10^3/ul (0.0-0.6); BAND NEUTROPHILS % (M) 21 % (0-4); HYPOCHROMASIA 2+ (0-0); LYMPHOCYTES #M 0.3 10^3/ul (0.8-2.9); LYMPHOCYTES % (M) 6 % (15-51); MICROCYTOSIS 2+ (0-0); MONOCYTE #M 0.1 10^3/ul (0.3-0.9); MONOCYTES % (M) 2 % (0-11); PLATELET ESTIMATE DECREASED; POLYCHROMASIA 1+ (0-0); SEG NEUT #M 4.3 10^3/ul (1.7-7.5); SEGMENTED NEUTROPHILS (M) % 71 % (39-77); SMUDGE%M 3 % (0-0)
[2017-07-28] MEDS: MULTIVITAMINS 30 ML CUP NGT (08:49)
[2017-07-28] MEDS: METHYLPREDNISOLONE 40 MG INJ IV ×2 (08:49→21:11)
[2017-07-28] MEDS: ZINC SULFATE 220 MG CAP NGT (08:49)
[2017-07-28] MEDS: ASCORBIC ACID 500 MG TAB NGT (08:49)
[2017-07-28] MEDS: COLLAGENASE 30 GM TUBE TOP (09:00)
[2017-07-28] MEDS: METOLAZONE 5 MG TAB PO (09:16)
[2017-07-28] MEDS: TOBRAMYCIN/0.25NS 300 MG/5 ML INHAL NEB ×2 (10:03→20:42)
[2017-07-28] MEDS: CEFTAZIDIME 1GM/50 ML (PMX) 50 ML IVPB (12:39)
[2017-07-28] MEDS: LEVOFLOXACIN 500MG/D5W (PMX) 100 ML IVPB (12:39)
[2017-07-28] MEDS: NORepinephrine 8MG/250 ML (PMX 250 ML IV (13:33)
[2017-07-28] MEDS ORDERED: FENTAnyl 50 MCG/ML VIAL (15:33)
[2017-07-28] MEDS: LIDOCAINE 1%/EPI 30 ML INJ (15:50)
[2017-07-28] MEDS: CEFAZOLIN 2 GM/50 ML (PMX) 50 ML IVPB (16:35)
[2017-07-28] MEDS: POTASSIUM CHLORIDE 50 ML IVPB (17:30)
[2017-07-28] MEDS: HYDROmorphONE 0.5 MG/0.5 ML SYG IV (18:30)
[2017-07-29] MEDS: METOCLOPRAMIDE 5 MG TAB PO ×4 (00:07→17:23)
[2017-07-29 05:58] LABS: ABNORMAL IP MESSAGE 1; HEMATOCRIT 23.4 % (37.0-47.0); HEMOGLOBIN 7.5 g/dl (12.0-16.0); MEAN CORPUSCULAR HEMOGLOBIN 31.4 pg (29.0-33.0); MEAN CORPUSCULAR HGB CONC 32.1 g/dl (32.0-37.0); MEAN CORPUSCULAR VOLUME 97.9 fl (82.0-101.0); MEAN PLATELET VOLUME 12.7 fl (7.4-10.4); PLATELET COUNT 76 10^3/UL (140-415); RED BLOOD COUNT 2.39 10^6/ul (4.20-5.40); RED CELL DISTRIBUTION WIDTH 16.2 % (11.5-14.5)
[2017-07-29 05:58] LABS: WHITE BLOOD COUNT 5.2 10^3/ul (4.8-10.8)
[2017-07-29 06:05] LABS: ADD MAN DIFF? YES; POSITIVE DIFF @See below
[2017-07-29 06:46] LABS: ANION GAP 14 (8-16); BLOOD UREA NITROGEN 56 mg/dl (7-20); CALCIUM 7.5 mg/dl (8.4-10.2); CARBON DIOXIDE 31 mmol/L (21-31); CHLORIDE 106 mmol/L (97-110); CREATININE 1.68 mg/dl (0.44-1.00); GLUCOSE 111 mg/dl (70-220); MAGNESIUM 2.1 mg/dl (1.7-2.5); PHOSPHORUS 4.4 mg/dl (2.5-4.9); POTASSIUM 3.7 mmol/L (3.5-5.1); SODIUM 147 mmol/L (135-144)
[2017-07-29] MEDS: PANTOPRAZOLE 40 MG INJ IV ×2 (06:46→17:23)
[2017-07-29] MEDS: MULTIVITAMINS 30 ML CUP NGT (08:00)
[2017-07-29] MEDS: METHYLPREDNISOLONE 40 MG INJ IV ×2 (08:00→20:31)
[2017-07-29] MEDS: ZINC SULFATE 220 MG CAP NGT (08:01)
[2017-07-29] MEDS: ASCORBIC ACID 500 MG TAB NGT (08:01)
[2017-07-29] MEDS: COLLAGENASE 30 GM TUBE TOP (08:01)
[2017-07-29] MEDS: METOLAZONE 5 MG TAB PO (08:01)
[2017-07-29] MEDS: TOBRAMYCIN/0.25NS 300 MG/5 ML INHAL NEB ×2 (10:08→20:37)
[2017-07-29 10:23] LABS: ANISOCYTOSIS 2+ (0-0); BAND NEUTROPHILS % (M) 20 % (0-4); ERYTHROBLAST% (NRBC) (M) 1 % (0-0); HYPOCHROMASIA 2+ (0-0); LYMPHOCYTES #M 0.2 10^3/ul (0.8-2.9); LYMPHOCYTES % (M) 5 % (15-51); MICROCYTOSIS 2+ (0-0); MONOCYTE #M 0.2 10^3/ul (0.3-0.9); MONOCYTES % (M) 5 % (0-11); PLATELET ESTIMATE SIG DECREASED; POLYCHROMASIA 3+ (0-0); SEG NEUT #M 3.7 10^3/ul (1.7-7.5); SEGMENTED NEUTROPHILS (M) % 70 % (39-77); SMUDGE%M 3 % (0-0)
[2017-07-29 11:02] LABS: Allen Test ACCEPTAB; Arterial Base Excess 4.1 mmol/L (-3.0-3); Arterial Blood Gas Oxygen Sat 89.1 mmHG (95.0-98.0); Arterial COHb 0.3 % (0.0-3.0); Arterial Fraction of Oxyhgb 88.6 % (93.0-99.0); Arterial HCO3 29.4 mmol/L (22.0-26.0); Arterial MetHb 0.3 % (0.0-1.5); Arterial Total Hemglobin 9.5 g/dl (12.0-18.0); Arterial pCO2 48.4 mmhg (35-45); MODE VENT - AC; Site Right Radial
[2017-07-29] MEDS: CEFTAZIDIME 1GM/50 ML (PMX) 50 ML IVPB (14:12)
[2017-07-29] MEDS ORDERED: METOCLOPRAMIDE 5 MG TAB PO ×2 (20:49)
[2017-07-30] MEDS: METOCLOPRAMIDE 5 MG TAB PO ×5 (00:31→23:50)
[2017-07-30 05:11] LABS: WHITE BLOOD COUNT 6.6 10^3/ul (4.8-10.8)
[2017-07-30 05:11] LABS: ABNORMAL IP MESSAGE 1; HEMATOCRIT 24.4 % (37.0-47.0); HEMOGLOBIN 7.7 g/dl (12.0-16.0); MEAN CORPUSCULAR HEMOGLOBIN 30.7 pg (29.0-33.0); MEAN CORPUSCULAR HGB CONC 31.6 g/dl (32.0-37.0); MEAN CORPUSCULAR VOLUME 97.2 fl (82.0-101.0); MEAN PLATELET VOLUME 12.3 fl (7.4-10.4); PLATELET COUNT 103 10^3/UL (140-415); RED BLOOD COUNT 2.51 10^6/ul (4.20-5.40); RED CELL DISTRIBUTION WIDTH 15.9 % (11.5-14.5)
[2017-07-30 05:14] LABS: POSITIVE DIFF @See below
[2017-07-30 05:15] LABS: ADD MAN DIFF? YES
[2017-07-30 05:33] LABS: ANION GAP 11 (8-16); BLOOD UREA NITROGEN 58 mg/dl (7-20); CALCIUM 7.7 mg/dl (8.4-10.2); CARBON DIOXIDE 34 mmol/L (21-31); CHLORIDE 104 mmol/L (97-110); CREATININE 1.79 mg/dl (0.44-1.00); GLUCOSE 110 mg/dl (70-220); MAGNESIUM 2.2 mg/dl (1.7-2.5); PHOSPHORUS 4.4 mg/dl (2.5-4.9); POTASSIUM 3.5 mmol/L (3.5-5.1); SODIUM 145 mmol/L (135-144)
[2017-07-30] MEDS: PANTOPRAZOLE 40 MG INJ IV ×2 (05:48→18:49)
[2017-07-30 08:04] LABS: BASOPHILS % 0.2 % (0.0-2.0); LYMPHOCYTES # 0.5 10^3/ul (0.8-2.9); LYMPHOCYTES % 6.9 % (15.0-51.0); MONOCYTE # 0.5 10^3/ul (0.3-0.9); MONOCYTES % 8.1 % (0.0-11.0); NEUTROPHIL # 5.5 10^3/ul (1.6-7.5); NEUTROPHILS % 84.3 % (39.0-77.0)
[2017-07-30 08:59] LABS: ANISOCYTOSIS 1+ (0-0); BAND NEUTROPHILS #M 1.4 10^3/ul (0.0-0.6); BAND NEUTROPHILS % (M) 22 % (0-4); GIANT THROMBO% (M) 7 % (0-0); LYMPHOCYTES % (M) 1 % (15-51); METAMYELOCYTES %M 1 % (0-0); MICROCYTOSIS 1+ (0-0); MONOCYTE #M 0.2 10^3/ul (0.3-0.9); MONOCYTES % (M) 4 % (0-11); PLATELET ESTIMATE DECREASED; POLYCHROMASIA 3+ (0-0); SEG NEUT #M 4.8 10^3/ul (1.7-7.5); SEGMENTED NEUTROPHILS (M) % 72 % (39-77); SMUDGE%M 6 % (0-0)
[2017-07-30] MEDS: MULTIVITAMINS 30 ML CUP NGT (09:03)
[2017-07-30] MEDS: FUROSEMIDE 40 MG INJ IV (09:03)
[2017-07-30] MEDS: ASCORBIC ACID 500 MG TAB NGT (09:03)
[2017-07-30] MEDS: METHYLPREDNISOLONE 40 MG INJ IV ×2 (09:03→20:57)
[2017-07-30] MEDS: COLLAGENASE 30 GM TUBE TOP (09:04)
[2017-07-30] MEDS: ZINC SULFATE 220 MG CAP NGT (09:04)
[2017-07-30] MEDS: METOLAZONE 5 MG TAB PO (09:04)
[2017-07-30] MEDS: POTASSIUM CHLORIDE 50 ML IVPB ×2 (10:37→11:45)
[2017-07-30] MEDS: LEVOFLOXACIN 500MG/D5W (PMX) 100 ML IVPB (12:25)
[2017-07-30] MEDS: TOBRAMYCIN/0.25NS 300 MG/5 ML INHAL NEB (13:59)
[2017-07-30] MEDS: CEFTAZIDIME 1GM/50 ML (PMX) 50 ML IVPB (14:32)
[2017-07-30] MEDS: SOD CHLORIDE 0.9% 250 ML IV* (15:53)
[2017-07-30] MEDS: ACETAMINOPHEN 325 MG TAB NGT (16:00)
[2017-07-30 22:59] LABS: IMMEDIATE SPIN CROSSMATCH 1 1
[2017-07-31] MEDS: PANTOPRAZOLE 40 MG INJ IV ×2 (05:32→18:07)
[2017-07-31] MEDS: METOCLOPRAMIDE 5 MG TAB PO ×3 (05:32→18:07)
[2017-07-31 06:12] LABS: WHITE BLOOD COUNT 4.3 10^3/ul (4.8-10.8)
[2017-07-31 06:12] LABS: ABNORMAL IP MESSAGE 1; HEMATOCRIT 25.6 % (37.0-47.0); HEMOGLOBIN 8.6 g/dl (12.0-16.0); MEAN CORPUSCULAR HEMOGLOBIN 32.8 pg (29.0-33.0); MEAN CORPUSCULAR HGB CONC 33.6 g/dl (32.0-37.0); MEAN CORPUSCULAR VOLUME 97.7 fl (82.0-101.0); MEAN PLATELET VOLUME 12.5 fl (7.4-10.4); PLATELET COUNT 83 10^3/UL (140-415); RED BLOOD COUNT 2.62 10^6/ul (4.20-5.40); RED CELL DISTRIBUTION WIDTH 17.5 % (11.5-14.5)
[2017-07-31 06:32] LABS: ADD MAN DIFF? YES; POSITIVE DIFF @See below
[2017-07-31 06:37] LABS: ANION GAP 12 (8-16); BLOOD UREA NITROGEN 56 mg/dl (7-20); CALCIUM 7.4 mg/dl (8.4-10.2); CARBON DIOXIDE 31 mmol/L (21-31); CHLORIDE 104 mmol/L (97-110); GLUCOSE 112 mg/dl (70-220); MAGNESIUM 2.3 mg/dl (1.7-2.5); PHOSPHORUS 3.9 mg/dl (2.5-4.9); POTASSIUM 3.4 mmol/L (3.5-5.1); SODIUM 144 mmol/L (135-144)
[2017-07-31] MEDS ORDERED: POTASSIUM CHLORIDE 50 ML IVPB (08:00)
[2017-07-31] MEDS: METHYLPREDNISOLONE 40 MG INJ IV ×2 (08:00→20:25)
[2017-07-31] MEDS: ASCORBIC ACID 500 MG TAB NGT (08:00)
[2017-07-31] MEDS: ZINC SULFATE 220 MG CAP NGT (08:00)
[2017-07-31] MEDS: MULTIVITAMINS 30 ML CUP NGT (08:00)
[2017-07-31] MEDS: COLLAGENASE 30 GM TUBE TOP (08:01)
[2017-07-31] MEDS: METOLAZONE 5 MG TAB PO (08:01)
[2017-07-31] MEDS: POTASSIUM CHLORIDE 50 ML IVPB ×2 (09:49→13:21)
[2017-07-31] MEDS: FUROSEMIDE 40 MG INJ IV ×2 (09:49→18:07)
[2017-07-31 10:13] LABS: ANISOCYTOSIS 2+ (0-0); BAND NEUTROPHILS #M 1.1 10^3/ul (0.0-0.6); BAND NEUTROPHILS % (M) 26 % (0-4); GIANT THROMBO% (M) 3 % (0-0); HYPOCHROMASIA 1+ (0-0); LYMPHOCYTES #M 0.2 10^3/ul (0.8-2.9); LYMPHOCYTES % (M) 5 % (15-51); MICROCYTOSIS 2+ (0-0); MONOCYTE #M 0.3 10^3/ul (0.3-0.9); MONOCYTES % (M) 7 % (0-11); MYELOCYTES % (M) 1 % (0-0); PLATELET ESTIMATE SIG DECREASED; SEG NEUT #M 2.7 10^3/ul (1.7-7.5); SEGMENTED NEUTROPHILS (M) % 61 % (39-77); SMUDGE%M 1 % (0-0)
[2017-07-31] MEDS ORDERED: CEFAZOLIN 1 GM/50 ML (PMX) 50 ML IVPB (13:38)
[2017-07-31] MEDS ORDERED: PROPOFOL 100 ML (13:39)
[2017-08-01] MEDS: METOCLOPRAMIDE 5 MG TAB PO ×4 (00:07→17:46)
[2017-08-01 05:14] LABS: WHITE BLOOD COUNT 3.5 10^3/ul (4.8-10.8)
[2017-08-01 05:15] LABS: ABNORMAL IP MESSAGE 1; HEMATOCRIT 27.8 % (37.0-47.0); MEAN CORPUSCULAR HEMOGLOBIN 30.3 pg (29.0-33.0); MEAN CORPUSCULAR HGB CONC 32.4 g/dl (32.0-37.0); MEAN CORPUSCULAR VOLUME 93.6 fl (82.0-101.0); MEAN PLATELET VOLUME 12.2 fl (7.4-10.4); PLATELET COUNT 97 10^3/UL (140-415); RED BLOOD COUNT 2.97 10^6/ul (4.20-5.40); RED CELL DISTRIBUTION WIDTH 15.6 % (11.5-14.5)
[2017-08-01] MEDS: FUROSEMIDE 40 MG INJ IV ×2 (05:49→17:46)
[2017-08-01] MEDS: PANTOPRAZOLE 40 MG INJ IV ×2 (05:49→17:46)
[2017-08-01 06:03] LABS: POSITIVE DIFF @See below
[2017-08-01 06:04] LABS: ADD MAN DIFF? YES
[2017-08-01 06:09] LABS: ANION GAP 14 (8-16); BLOOD UREA NITROGEN 56 mg/dl (7-20); CALCIUM 7.5 mg/dl (8.4-10.2); CARBON DIOXIDE 30 mmol/L (21-31); CHLORIDE 105 mmol/L (97-110); CREATININE 1.79 mg/dl (0.44-1.00); GLUCOSE 99 mg/dl (70-220); MAGNESIUM 2.2 mg/dl (1.7-2.5); PHOSPHORUS 4.2 mg/dl (2.5-4.9); POTASSIUM 3.1 mmol/L (3.5-5.1); SODIUM 146 mmol/L (135-144)
[2017-08-01] MEDS: POTASSIUM CHLORIDE 20 MEQ POWDER FOR ORAL SOLN GTB (06:57)
[2017-08-01] MEDS: ZINC SULFATE 220 MG CAP NGT (08:00)
[2017-08-01] MEDS: METHYLPREDNISOLONE 40 MG INJ IV ×2 (08:00→21:27)
[2017-08-01] MEDS: METOLAZONE 5 MG TAB PO (08:00)
[2017-08-01] MEDS: ASCORBIC ACID 500 MG TAB NGT (08:00)
[2017-08-01] MEDS: MULTIVITAMINS 30 ML CUP NGT (08:01)
[2017-08-01] MEDS: COLLAGENASE 30 GM TUBE TOP (08:09)
[2017-08-01 10:27] LABS: ANISOCYTOSIS 2+ (0-0); BAND NEUTROPHILS % (M) 31 % (0-4); ERYTHROBLAST% (NRBC) (M) 1 % (0-0); GIANT THROMBO% (M) 12 % (0-0); LYMPHOCYTES #M 0.1 10^3/ul (0.8-2.9); LYMPHOCYTES % (M) 5 % (15-51); MONOCYTE #M 0.2 10^3/ul (0.3-0.9); MONOCYTES % (M) 6 % (0-11); PLATELET ESTIMATE DECREASED; REACTIVE LYMPHOCYTES% (M) 1 % (0-0); SEGMENTED NEUTROPHILS (M) % 55 % (39-77); SMUDGE%M 2 % (0-0)
[2017-08-02] MEDS: METOCLOPRAMIDE 5 MG TAB PO ×5 (00:58→23:45)
[2017-08-02] MEDS: FUROSEMIDE 40 MG INJ IV ×3 (03:00→18:00)
[2017-08-02 05:25] LABS: ABNORMAL IP MESSAGE 1; HEMATOCRIT 27.1 % (37.0-47.0); HEMOGLOBIN 8.5 g/dl (12.0-16.0); MEAN CORPUSCULAR HEMOGLOBIN 30.2 pg (29.0-33.0); MEAN CORPUSCULAR HGB CONC 31.4 g/dl (32.0-37.0); MEAN CORPUSCULAR VOLUME 96.4 fl (82.0-101.0); MEAN PLATELET VOLUME 11.9 fl (7.4-10.4); PLATELET COUNT 118 10^3/UL (140-415); RED BLOOD COUNT 2.81 10^6/ul (4.20-5.40); RED CELL DISTRIBUTION WIDTH 15.7 % (11.5-14.5)
[2017-08-02 05:25] LABS: WHITE BLOOD COUNT 4.5 10^3/ul (4.8-10.8)
[2017-08-02] MEDS: PANTOPRAZOLE 40 MG INJ IV ×2 (05:30→18:00)
[2017-08-02 06:01] LABS: ANION GAP 12 (8-16); BLOOD UREA NITROGEN 58 mg/dl (7-20); CALCIUM 7.6 mg/dl (8.4-10.2); CARBON DIOXIDE 32 mmol/L (21-31); CHLORIDE 104 mmol/L (97-110); CREATININE 1.71 mg/dl (0.44-1.00); GLUCOSE 140 mg/dl (70-220); MAGNESIUM 2.2 mg/dl (1.7-2.5); PHOSPHORUS 4.3 mg/dl (2.5-4.9); POTASSIUM 3.6 mmol/L (3.5-5.1); SODIUM 144 mmol/L (135-144)
[2017-08-02 06:36] LABS: POSITIVE DIFF @See below
[2017-08-02 06:37] LABS: ADD MAN DIFF? YES
[2017-08-02] MEDS: MULTIVITAMINS 30 ML CUP NGT (08:18)
[2017-08-02] MEDS: METHYLPREDNISOLONE 40 MG INJ IV (08:18)
[2017-08-02] MEDS: ASCORBIC ACID 500 MG TAB NGT (08:18)
[2017-08-02] MEDS: ZINC SULFATE 220 MG CAP NGT (08:22)
[2017-08-02] MEDS: POTASSIUM CHLORIDE 50 ML IVPB ×3 (08:24→13:51)
[2017-08-02] MEDS: METOLAZONE 5 MG TAB PO (09:00)
[2017-08-02 09:18] LABS: ANISOCYTOSIS 1+ (0-0); BAND NEUTROPHILS #M 1.7 10^3/ul (0.0-0.6); BAND NEUTROPHILS % (M) 39 % (0-4); GIANT THROMBO% (M) 3 % (0-0); LYMPHOCYTES #M 0.2 10^3/ul (0.8-2.9); LYMPHOCYTES % (M) 5 % (15-51); MICROCYTOSIS 1+ (0-0); MONOCYTE #M 0.1 10^3/ul (0.3-0.9); MONOCYTES % (M) 4 % (0-11); PLATELET ESTIMATE DECREASED; POLYCHROMASIA 1+ (0-0); REACTIVE LYMPHOCYTES% (M) 1 % (0-0); SEG NEUT #M 2.4 10^3/ul (1.7-7.5); SEGMENTED NEUTROPHILS (M) % 51 % (39-77); SMUDGE%M 9 % (0-0)
[2017-08-02] MEDS: COLLAGENASE 30 GM TUBE TOP (11:00)
[2017-08-03] MEDS: METOCLOPRAMIDE 5 MG TAB PO ×3 (05:35→17:40)
[2017-08-03] MEDS: PANTOPRAZOLE 40 MG INJ IV ×2 (05:35→17:39)
[2017-08-03] MEDS: FUROSEMIDE 40 MG INJ IV ×2 (05:35→17:40)
[2017-08-03 05:55] LABS: ADD MAN DIFF? NO
[2017-08-03 06:03] LABS: WHITE BLOOD COUNT 4.7 10^3/ul (4.8-10.8)
[2017-08-03 06:03] LABS: ABNORMAL IP MESSAGE 1; BASOPHILS % 0.2 % (0.0-2.0); EOSINOPHILS % 0.2 % (0.0-7.0); HEMATOCRIT 25.4 % (37.0-47.0); HEMOGLOBIN 8.1 g/dl (12.0-16.0); LYMPHOCYTES # 0.4 10^3/ul (0.8-2.9); LYMPHOCYTES % 8.1 % (15.0-51.0); MEAN CORPUSCULAR HEMOGLOBIN 30.1 pg (29.0-33.0); MEAN CORPUSCULAR HGB CONC 31.9 g/dl (32.0-37.0); MEAN CORPUSCULAR VOLUME 94.4 fl (82.0-101.0); MEAN PLATELET VOLUME 11.6 fl (7.4-10.4); MONOCYTE # 0.3 10^3/ul (0.3-0.9); MONOCYTES % 6.9 % (0.0-11.0); NEUTROPHIL # 3.9 10^3/ul (1.6-7.5); PLATELET COUNT 108 10^3/UL (140-415); RED BLOOD COUNT 2.69 10^6/ul (4.20-5.40); RED CELL DISTRIBUTION WIDTH 15.6 % (11.5-14.5)
[2017-08-03 06:11] LABS: POSITIVE DIFF @See below
[2017-08-03 06:17] LABS: ANION GAP 13 (8-16); BLOOD UREA NITROGEN 60 mg/dl (7-20); CALCIUM 7.5 mg/dl (8.4-10.2); CARBON DIOXIDE 31 mmol/L (21-31); CHLORIDE 103 mmol/L (97-110); CREATININE 1.58 mg/dl (0.44-1.00); GLUCOSE 111 mg/dl (70-220); MAGNESIUM 2.2 mg/dl (1.7-2.5); POTASSIUM 3.6 mmol/L (3.5-5.1); SODIUM 143 mmol/L (135-144)
[2017-08-03] MEDS: POTASSIUM CHLORIDE 50 ML IVPB ×2 (06:38→07:33)
[2017-08-03] MEDS: MULTIVITAMINS 30 ML CUP NGT (08:11)
[2017-08-03] MEDS: ASCORBIC ACID 500 MG TAB NGT (08:12)
[2017-08-03] MEDS: METHYLPREDNISOLONE 40 MG INJ IV (08:12)
[2017-08-03] MEDS: ZINC SULFATE 220 MG CAP NGT (08:12)
[2017-08-03] MEDS: COLLAGENASE 30 GM TUBE TOP (08:13)
[2017-08-03] MEDS: METOLAZONE 5 MG TAB PO ×2 (08:20→09:10)
[2017-08-03] MEDS: ERYTHROMYCIN BASE (EC) 250 MG TAB PO (21:32)
[2017-08-04 04:47] LABS: ADD MAN DIFF? NO
[2017-08-04 04:52] LABS: WHITE BLOOD COUNT 6.9 10^3/ul (4.8-10.8)
[2017-08-04 04:52] LABS: ABNORMAL IP MESSAGE 1; BASOPHILS % 0.4 % (0.0-2.0); HEMATOCRIT 25.1 % (37.0-47.0); LYMPHOCYTES # 0.6 10^3/ul (0.8-2.9); MEAN CORPUSCULAR HEMOGLOBIN 29.4 pg (29.0-33.0); MEAN CORPUSCULAR HGB CONC 31.9 g/dl (32.0-37.0); MEAN CORPUSCULAR VOLUME 92.3 fl (82.0-101.0); MEAN PLATELET VOLUME 11.1 fl (7.4-10.4); MONOCYTE # 0.4 10^3/ul (0.3-0.9); MONOCYTES % 6.3 % (0.0-11.0); NEUTROPHIL # 5.8 10^3/ul (1.6-7.5); NEUTROPHILS % 84.9 % (39.0-77.0); PLATELET COUNT 151 10^3/UL (140-415); RED BLOOD COUNT 2.72 10^6/ul (4.20-5.40); RED CELL DISTRIBUTION WIDTH 15.6 % (11.5-14.5)
[2017-08-04 05:31] LABS: ANION GAP 13 (8-16); BLOOD UREA NITROGEN 62 mg/dl (7-20); CALCIUM 7.8 mg/dl (8.4-10.2); CARBON DIOXIDE 32 mmol/L (21-31); CHLORIDE 102 mmol/L (97-110); CREATININE 1.58 mg/dl (0.44-1.00); GLUCOSE 97 mg/dl (70-220); MAGNESIUM 2.2 mg/dl (1.7-2.5); PHOSPHORUS 3.8 mg/dl (2.5-4.9); POTASSIUM 3.6 mmol/L (3.5-5.1); SODIUM 143 mmol/L (135-144)
[2017-08-04 05:32] LABS: POSITIVE DIFF @See below
[2017-08-04] MEDS: PANTOPRAZOLE 40 MG INJ IV ×2 (05:46→18:12)
[2017-08-04] MEDS: FUROSEMIDE 40 MG INJ IV (05:46)
[2017-08-04] MEDS: METOCLOPRAMIDE 5 MG TAB PO ×5 (05:47→23:35)
[2017-08-04] MEDS: METOLAZONE 5 MG TAB PO (09:16)
[2017-08-04] MEDS: ZINC SULFATE 220 MG CAP NGT (09:16)
[2017-08-04] MEDS: METHYLPREDNISOLONE 40 MG INJ IV (09:17)
[2017-08-04] MEDS: ASCORBIC ACID 500 MG TAB NGT (09:17)
[2017-08-04] MEDS: ERYTHROMYCIN BASE (EC) 250 MG TAB PO ×3 (09:17→21:11)
[2017-08-04] MEDS: MULTIVITAMINS 30 ML CUP NGT (09:17)
[2017-08-04] MEDS ORDERED: VANCOMYCIN IV PER PHARMACY XX (13:30)
[2017-08-04] MEDS: POTASSIUM CHLORIDE 50 ML IVPB ×2 (14:17→18:04)
[2017-08-04] MEDS: FLUCONAZOLE 100 MG TAB PO (14:25)
[2017-08-04] MEDS: VANCOMYCIN 1 GM 250 ML IVPB (14:30)
[2017-08-04] MEDS: ALBUMIN HUMAN 25% 100 ML IV ×2 (14:30→21:47)
[2017-08-04] MEDS: COLLAGENASE 30 GM TUBE TOP (14:54)
[2017-08-04] MEDS: VANCOMYCIN 500MG/NS (PMX) 100 ML IVPB (15:01)
[2017-08-04] MEDS: CEFTAZIDIME 1GM/50 ML (PMX) 50 ML IVPB (15:02)
[2017-08-05 04:37] LABS: ADD MAN DIFF? NO
[2017-08-05 04:42] LABS: ABNORMAL IP MESSAGE 1; BASOPHILS % 0.6 % (0.0-2.0); HEMATOCRIT 19.7 % (37.0-47.0); LYMPHOCYTES # 0.3 10^3/ul (0.8-2.9); LYMPHOCYTES % 9.3 % (15.0-51.0); MEAN CORPUSCULAR HGB CONC 32.5 g/dl (32.0-37.0); MEAN CORPUSCULAR VOLUME 98.5 fl (82.0-101.0); MEAN PLATELET VOLUME 11.8 fl (7.4-10.4); MONOCYTE # 0.2 10^3/ul (0.3-0.9); MONOCYTES % 6.5 % (0.0-11.0); NEUTROPHILS % 83.3 % (39.0-77.0); PLATELET COUNT 115 10^3/UL (140-415); RED CELL DISTRIBUTION WIDTH 17.5 % (11.5-14.5)
[2017-08-05 04:42] LABS: WHITE BLOOD COUNT 3.5 10^3/ul (4.8-10.8)
[2017-08-05 04:58] LABS: POSITIVE DIFF @See below
[2017-08-05 05:00] LABS: HEMOGLOBIN 6.4 g/dl (12.0-16.0)
[2017-08-05 05:17] LABS: ANION GAP 13 (8-16); BLOOD UREA NITROGEN 59 mg/dl (7-20); CALCIUM 7.8 mg/dl (8.4-10.2); CARBON DIOXIDE 31 mmol/L (21-31); CHLORIDE 102 mmol/L (97-110); CREATININE 1.57 mg/dl (0.44-1.00); GLUCOSE 75 mg/dl (70-220); MAGNESIUM 2.2 mg/dl (1.7-2.5); POTASSIUM 3.2 mmol/L (3.5-5.1); SODIUM 143 mmol/L (135-144)
[2017-08-05 05:22] LABS: ADD MAN DIFF? NO
[2017-08-05 05:24] LABS: ABNORMAL IP MESSAGE 1; BASOPHILS % 0.5 % (0.0-2.0); HEMATOCRIT 20.1 % (37.0-47.0); LYMPHOCYTES # 0.4 10^3/ul (0.8-2.9); MEAN CORPUSCULAR HEMOGLOBIN 30.7 pg (29.0-33.0); MEAN CORPUSCULAR HGB CONC 32.3 g/dl (32.0-37.0); MEAN CORPUSCULAR VOLUME 94.8 fl (82.0-101.0); MONOCYTE # 0.2 10^3/ul (0.3-0.9); MONOCYTES % 6.4 % (0.0-11.0); NEUTROPHILS % 81.6 % (39.0-77.0); PLATELET COUNT 115 10^3/UL (140-415); RED BLOOD COUNT 2.12 10^6/ul (4.20-5.40); RED CELL DISTRIBUTION WIDTH 15.6 % (11.5-14.5)
[2017-08-05 05:24] LABS: WHITE BLOOD COUNT 3.7 10^3/ul (4.8-10.8)
[2017-08-05] MEDS: PANTOPRAZOLE 40 MG INJ IV ×2 (05:41→18:00)
[2017-08-05] MEDS: METOCLOPRAMIDE 5 MG TAB PO ×3 (05:41→18:00)
[2017-08-05] MEDS: ALBUMIN HUMAN 25% 100 ML IV (05:43)
[2017-08-05 05:49] LABS: POSITIVE DIFF @See below
[2017-08-05 05:50] LABS: HEMOGLOBIN 6.5 g/dl (12.0-16.0)
[2017-08-05 08:10] LABS: ANISOCYTOSIS 1+ (0-0); BAND NEUTROPHILS #M 0.8 10^3/ul (0.0-0.6); BAND NEUTROPHILS % (M) 23 % (0-4); GIANT THROMBO% (M) 10 % (0-0); LYMPHOCYTES #M 0.2 10^3/ul (0.8-2.9); LYMPHOCYTES % (M) 8 % (15-51); MONOCYTE #M 0.1 10^3/ul (0.3-0.9); MONOCYTES % (M) 5 % (0-11); PLATELET ESTIMATE DECREASED; POLYCHROMASIA 2+ (0-0); SEG NEUT #M 2.3 10^3/ul (1.7-7.5); SEGMENTED NEUTROPHILS (M) % 64 % (39-77); SMUDGE%M 11 % (0-0)
[2017-08-05] MEDS: METHYLPREDNISOLONE 40 MG INJ IV (08:46)
[2017-08-05] MEDS: ERYTHROMYCIN BASE (EC) 250 MG TAB PO ×3 (08:47→21:07)
[2017-08-05] MEDS: ASCORBIC ACID 500 MG TAB NGT (08:47)
[2017-08-05] MEDS: ZINC SULFATE 220 MG CAP NGT (08:47)
[2017-08-05] MEDS: MULTIVITAMINS 30 ML CUP NGT (08:47)
[2017-08-05] MEDS: FLUCONAZOLE 100 MG TAB PO (08:47)
[2017-08-05] MEDS: COLLAGENASE 30 GM TUBE TOP (08:48)
[2017-08-05 11:28] LABS: AHG CROSSMATCH 1 2
[2017-08-05] MEDS ORDERED: LIDOCAINE 1% (MPF) 5 ML VIAL SC (12:00)
[2017-08-05] MEDS: VANCOMYCIN 500MG/NS (PMX) 100 ML IVPB ×2 (14:00→15:00)
[2017-08-05] MEDS: CEFTAZIDIME 1GM/50 ML (PMX) 50 ML IVPB (15:00)
[2017-08-05] MEDS: DEXTROSE 5%-0.45% NACL 1,000 ML IV (17:02)
[2017-08-06] MEDS: METOCLOPRAMIDE 5 MG TAB PO ×4 (00:45→17:45)
[2017-08-06 05:43] LABS: ABNORMAL IP MESSAGE 1; HEMATOCRIT 30.6 % (37.0-47.0); HEMOGLOBIN 10.1 g/dl (12.0-16.0); MEAN CORPUSCULAR HEMOGLOBIN 29.4 pg (29.0-33.0); MEAN CORPUSCULAR VOLUME 89.2 fl (82.0-101.0); PLATELET COUNT 117 10^3/UL (140-415); RED BLOOD COUNT 3.43 10^6/ul (4.20-5.40); RED CELL DISTRIBUTION WIDTH 15.9 % (11.5-14.5)
[2017-08-06 05:43] LABS: WHITE BLOOD COUNT 4.1 10^3/ul (4.8-10.8)
[2017-08-06 05:46] LABS: ADD MAN DIFF? YES; POSITIVE DIFF @See below
[2017-08-06] MEDS: PANTOPRAZOLE 40 MG INJ IV ×2 (06:00→17:47)
[2017-08-06 06:39] LABS: ANION GAP 10 (8-16); BLOOD UREA NITROGEN 58 mg/dl (7-20); CALCIUM 7.8 mg/dl (8.4-10.2); CARBON DIOXIDE 33 mmol/L (21-31); CHLORIDE 102 mmol/L (97-110); CREATININE 1.58 mg/dl (0.44-1.00); GLUCOSE 85 mg/dl (70-220); SODIUM 143 mmol/L (135-144)
[2017-08-06 06:58] LABS: POTASSIUM 2.4 mmol/L (3.5-5.1)
[2017-08-06] MEDS: POTASSIUM CHLORIDE 50 ML IVPB ×5 (07:02→17:44)
[2017-08-06 07:42] LABS: MAGNESIUM 2.1 mg/dl (1.7-2.5)
[2017-08-06 07:58] LABS: ANISOCYTOSIS 1+ (0-0); BAND NEUTROPHILS #M 0.7 10^3/ul (0.0-0.6); BAND NEUTROPHILS % (M) 19 % (0-4); LYMPHOCYTES #M 0.2 10^3/ul (0.8-2.9); LYMPHOCYTES % (M) 6 % (15-51); MONOCYTE #M 0.2 10^3/ul (0.3-0.9); MONOCYTES % (M) 7 % (0-11); OVALOCYTES 1+ (0-0); PLATELET ESTIMATE DECREASED; POIKILOCYTOSIS 1+ (0-0); POLYCHROMASIA 1+ (0-0); SEG NEUT #M 2.8 10^3/ul (1.7-7.5); SEGMENTED NEUTROPHILS (M) % 68 % (39-77); SMUDGE%M 14 % (0-0)
[2017-08-06] MEDS: ZINC SULFATE 220 MG CAP NGT (08:18)
[2017-08-06] MEDS: ERYTHROMYCIN BASE (EC) 250 MG TAB PO ×3 (08:18→20:21)
[2017-08-06] MEDS: COLLAGENASE 30 GM TUBE TOP (08:18)
[2017-08-06] MEDS: FLUCONAZOLE 100 MG TAB PO (08:18)
[2017-08-06] MEDS: ASCORBIC ACID 500 MG TAB NGT (08:18)
[2017-08-06] MEDS: MULTIVITAMINS 30 ML CUP NGT (08:18)
[2017-08-06] MEDS ORDERED: ALBUMIN HUMAN 5% 250 ML (09:52)
[2017-08-06] MEDS: ALBUMIN HUMAN 5% 250 ML IV ×2 (11:22→20:22)
[2017-08-06] MEDS: DEXTROSE 5%-0.45% NACL 1,000 ML IV (13:00)
[2017-08-06] MEDS: VANCOMYCIN 500MG/NS (PMX) 100 ML IVPB (15:29)
[2017-08-06] MEDS: CEFTAZIDIME 1GM/50 ML (PMX) 50 ML IVPB (17:45)
[2017-08-07] MEDS: METOCLOPRAMIDE 5 MG TAB PO ×4 (00:11→17:56)
[2017-08-07] MEDS: PANTOPRAZOLE 40 MG INJ IV ×2 (05:07→17:56)
[2017-08-07 05:17] LABS: AADO2 Arterial 163.6 mmHg (7.0-24.0); Arterial Base Excess 5.6 mmol/L (-3.0-3); Arterial Blood Gas Oxygen Sat 94.2 mmHG (95.0-98.0); Arterial COHb 0.3 % (0.0-3.0); Arterial Fraction of Oxyhgb 93.8 % (93.0-99.0); Arterial HCO3 29.9 mmol/L (22.0-26.0); Arterial MetHb 0.1 % (0.0-1.5); Arterial Total Hemglobin 10.5 g/dl (12.0-18.0); Arterial pCO2 42.6 mmhg (35-45); MODE VENT - AC; Site Right Brachial
[2017-08-07 06:06] LABS: ADD MAN DIFF? NO
[2017-08-07 06:11] LABS: WHITE BLOOD COUNT 3.9 10^3/ul (4.8-10.8)
[2017-08-07 06:11] LABS: ABNORMAL IP MESSAGE 1; EOSINOPHILS % 0.3 % (0.0-7.0); HEMATOCRIT 28.1 % (37.0-47.0); HEMOGLOBIN 9.2 g/dl (12.0-16.0); LYMPHOCYTES # 0.4 10^3/ul (0.8-2.9); LYMPHOCYTES % 9.4 % (15.0-51.0); MEAN CORPUSCULAR HEMOGLOBIN 29.8 pg (29.0-33.0); MEAN CORPUSCULAR HGB CONC 32.7 g/dl (32.0-37.0); MEAN CORPUSCULAR VOLUME 90.9 fl (82.0-101.0); MONOCYTE # 0.2 10^3/ul (0.3-0.9); MONOCYTES % 5.1 % (0.0-11.0); NEUTROPHIL # 3.3 10^3/ul (1.6-7.5); NEUTROPHILS % 83.9 % (39.0-77.0); PLATELET COUNT 101 10^3/UL (140-415); RED BLOOD COUNT 3.09 10^6/ul (4.20-5.40)
[2017-08-07 06:20] LABS: POSITIVE DIFF @See below
[2017-08-07 06:29] LABS: ANION GAP 11 (8-16); BLOOD UREA NITROGEN 51 mg/dl (7-20); CALCIUM 7.5 mg/dl (8.4-10.2); CARBON DIOXIDE 31 mmol/L (21-31); CHLORIDE 104 mmol/L (97-110); CREATININE 1.37 mg/dl (0.44-1.00); GLUCOSE 115 mg/dl (70-220); SODIUM 143 mmol/L (135-144)
[2017-08-07 06:48] LABS: POTASSIUM 2.8 mmol/L (3.5-5.1)
[2017-08-07] MEDS: POTASSIUM CHLORIDE 50 ML IVPB ×6 (06:52→16:00)
[2017-08-07 07:47] LABS: PHOSPHORUS 3.4 mg/dl (2.5-4.9)
[2017-08-07] MEDS: ZINC SULFATE 220 MG CAP NGT (08:09)
[2017-08-07] MEDS: MULTIVITAMINS 30 ML CUP NGT (08:09)
[2017-08-07] MEDS: ASCORBIC ACID 500 MG TAB NGT (08:10)
[2017-08-07] MEDS: FLUCONAZOLE 100 MG TAB PO (08:10)
[2017-08-07] MEDS: ERYTHROMYCIN BASE (EC) 250 MG TAB PO ×3 (08:10→20:50)
[2017-08-07] MEDS: ALBUMIN HUMAN 5% 250 ML IV (08:12)
[2017-08-07] MEDS: DEXTROSE 5%-0.45% NACL 1,000 ML IV (09:00)
[2017-08-07] MEDS: COLLAGENASE 30 GM TUBE TOP (09:00)
[2017-08-07] MEDS: POTASSIUM CHLORIDE 20 MEQ POWDER FOR ORAL SOLN GTB (10:35)
[2017-08-07] MEDS ORDERED: VANCOMYCIN 500MG/NS (PMX) 100 ML IVPB (15:00)
[2017-08-07 15:48] LABS: PATH REVIEW CH
[2017-08-07] MEDS: FOSFOMYCIN 3 GM PACKET PO (17:45)
[2017-08-07] MEDS: CEFTAZIDIME 1GM/50 ML (PMX) 50 ML IVPB (17:46)
[2017-08-07] MEDS: ZYVOX 600 MG TAB PO (20:50)
[2017-08-07 22:42] LABS: POTASSIUM 4.2 mmol/L (3.5-5.1)
[2017-08-08] MEDS: METOCLOPRAMIDE 5 MG TAB PO ×3 (00:04→17:54)
[2017-08-08 05:15] LABS: ADD MAN DIFF? NO
[2017-08-08] MEDS: PANTOPRAZOLE 40 MG INJ IV ×2 (05:23→17:55)
[2017-08-08 05:24] LABS: WHITE BLOOD COUNT 5.2 10^3/ul (4.8-10.8)
[2017-08-08 05:24] LABS: ABNORMAL IP MESSAGE 1; BASOPHILS % 0.6 % (0.0-2.0); EOSINOPHILS % 0.4 % (0.0-7.0); HEMOGLOBIN 10.4 g/dl (12.0-16.0); LYMPHOCYTES # 0.4 10^3/ul (0.8-2.9); MEAN CORPUSCULAR HEMOGLOBIN 29.1 pg (29.0-33.0); MEAN CORPUSCULAR HGB CONC 31.5 g/dl (32.0-37.0); MEAN CORPUSCULAR VOLUME 92.4 fl (82.0-101.0); MEAN PLATELET VOLUME 11.6 fl (7.4-10.4); MONOCYTE # 0.2 10^3/ul (0.3-0.9); MONOCYTES % 4.7 % (0.0-11.0); NEUTROPHIL # 4.4 10^3/ul (1.6-7.5); NEUTROPHILS % 85.7 % (39.0-77.0); PLATELET COUNT 99 10^3/UL (140-415); RED BLOOD COUNT 3.57 10^6/ul (4.20-5.40)
[2017-08-08 05:25] LABS: POSITIVE DIFF @See below
[2017-08-08 06:17] LABS: ANION GAP 13 (8-16); BLOOD UREA NITROGEN 50 mg/dl (7-20); CARBON DIOXIDE 30 mmol/L (21-31); CHLORIDE 106 mmol/L (97-110); CREATININE 1.29 mg/dl (0.44-1.00); GLUCOSE 130 mg/dl (70-220); POTASSIUM 3.8 mmol/L (3.5-5.1); SODIUM 145 mmol/L (135-144)
[2017-08-08 08:28] LABS: ANISOCYTOSIS 2+ (0-0); BAND NEUTROPHILS #M 0.9 10^3/ul (0.0-0.6); BAND NEUTROPHILS % (M) 18 % (0-4); EOSINOPHILS % (M) 1 % (0-7); GIANT THROMBO% (M) 2 % (0-0); LYMPHOCYTES #M 0.2 10^3/ul (0.8-2.9); LYMPHOCYTES % (M) 5 % (15-51); MICROCYTOSIS 2+ (0-0); MONOCYTE #M 0.3 10^3/ul (0.3-0.9); MONOCYTES % (M) 6 % (0-11); PLATELET ESTIMATE DECREASED; POLYCHROMASIA 3+ (0-0); SEG NEUT #M 3.7 10^3/ul (1.7-7.5); SEGMENTED NEUTROPHILS (M) % 70 % (39-77); SMUDGE%M 3 % (0-0)
[2017-08-08] MEDS: ZYVOX 600 MG TAB PO ×2 (08:41→21:04)
[2017-08-08] MEDS: ERYTHROMYCIN BASE (EC) 250 MG TAB PO ×3 (08:41→21:04)
[2017-08-08] MEDS: ASCORBIC ACID 500 MG TAB NGT (08:41)
[2017-08-08] MEDS: FLUCONAZOLE 100 MG TAB PO (08:41)
[2017-08-08] MEDS: MULTIVITAMINS 30 ML CUP NGT (08:42)
[2017-08-08] MEDS: ZINC SULFATE 220 MG CAP NGT (08:42)
[2017-08-08] MEDS: COLLAGENASE 30 GM TUBE TOP (08:43)
[2017-08-08] MEDS: FUROSEMIDE 20 MG INJ IV ×2 (08:51→17:55)
[2017-08-08] MEDS: HYDROmorphONE 0.5 MG/0.5 ML SYG IV (08:52)
[2017-08-08] MEDS: SOD CHLORIDE 0.9% 100 ML ×2 (14:45→18:17)
[2017-08-08] MEDS: CEFTAZIDIME 1GM/50 ML (PMX) 50 ML IVPB (17:55)
[2017-08-09] MEDS: METOCLOPRAMIDE 5 MG TAB PO ×4 (01:25→17:59)
[2017-08-09] MEDS: HYDROmorphONE 0.5 MG/0.5 ML SYG IV ×2 (01:26→21:35)
[2017-08-09] MEDS: PANTOPRAZOLE 40 MG INJ IV ×2 (05:01→17:59)
[2017-08-09] MEDS: FUROSEMIDE 20 MG INJ IV (05:01)
[2017-08-09 05:21] LABS: ABNORMAL IP MESSAGE 1; HEMATOCRIT 32.2 % (37.0-47.0); HEMOGLOBIN 10.3 g/dl (12.0-16.0); MEAN CORPUSCULAR HEMOGLOBIN 29.4 pg (29.0-33.0); MEAN PLATELET VOLUME 11.4 fl (7.4-10.4); PLATELET COUNT 104 10^3/UL (140-415); RED CELL DISTRIBUTION WIDTH 15.9 % (11.5-14.5)
[2017-08-09 05:21] LABS: WHITE BLOOD COUNT 6.1 10^3/ul (4.8-10.8)
[2017-08-09 05:34] LABS: ADD MAN DIFF? YES; POSITIVE DIFF @See below
[2017-08-09 05:58] LABS: ANION GAP 11 (8-16); BLOOD UREA NITROGEN 49 mg/dl (7-20); CALCIUM 8.1 mg/dl (8.4-10.2); CARBON DIOXIDE 32 mmol/L (21-31); CHLORIDE 105 mmol/L (97-110); CREATININE 1.31 mg/dl (0.44-1.00); GLUCOSE 94 mg/dl (70-220); MAGNESIUM 1.9 mg/dl (1.7-2.5); PHOSPHORUS 2.9 mg/dl (2.5-4.9); POTASSIUM 3.3 mmol/L (3.5-5.1); SODIUM 145 mmol/L (135-144)
[2017-08-09] MEDS: MULTIVITAMINS 30 ML CUP NGT (08:46)
[2017-08-09] MEDS: ACETAZOLAMIDE 500 MG INJ IV (08:46)
[2017-08-09] MEDS: FLUCONAZOLE 100 MG TAB PO (08:47)
[2017-08-09] MEDS: POTASSIUM CHLORIDE 20 MEQ POWDER FOR ORAL SOLN GTB (08:47)
[2017-08-09] MEDS: ASCORBIC ACID 500 MG TAB NGT (08:47)
[2017-08-09] MEDS: ZYVOX 600 MG TAB PO ×2 (08:47→21:34)
[2017-08-09] MEDS: ZINC SULFATE 220 MG CAP NGT (08:48)
[2017-08-09] MEDS: ERYTHROMYCIN BASE (EC) 250 MG TAB PO ×3 (08:48→21:34)
[2017-08-09] MEDS: COLLAGENASE 30 GM TUBE TOP (09:00)
[2017-08-09 09:59] LABS: ANISOCYTOSIS 1+ (0-0); BAND NEUTROPHILS #M 0.9 10^3/ul (0.0-0.6); BAND NEUTROPHILS % (M) 15 % (0-4); HYPOCHROMASIA 1+ (0-0); LYMPHOCYTES #M 0.5 10^3/ul (0.8-2.9); LYMPHOCYTES % (M) 9 % (15-51); METAMYELOCYTES %M 1 % (0-0); MONOCYTE #M 0.2 10^3/ul (0.3-0.9); MONOCYTES % (M) 4 % (0-11); PLATELET ESTIMATE DECREASED; POIKILOCYTOSIS 1+ (0-0); POLYCHROMASIA 1+ (0-0); SEG NEUT #M 4.3 10^3/ul (1.6-7.5); SEGMENTED NEUTROPHILS (M) % 70 % (39-77); SMUDGE%M 5 % (0-0); STOMATOCYTES 1+ (0-0)
[2017-08-09 14:32] LABS: ANION GAP 13 (8-16); BLOOD UREA NITROGEN 44 mg/dl (7-20); CALCIUM 7.2 mg/dl (8.4-10.2); CARBON DIOXIDE 28 mmol/L (21-31); CHLORIDE 111 mmol/L (97-110); CREATININE 1.21 mg/dl (0.44-1.00); GLUCOSE 86 mg/dl (70-220); POTASSIUM 3.9 mmol/L (3.5-5.1); SODIUM 148 mmol/L (135-144)
[2017-08-09] MEDS: CEFTAZIDIME 1GM/50 ML (PMX) 50 ML IVPB (17:59)
[2017-08-09] MEDS ORDERED: FUROSEMIDE 20 MG INJ IV ×2 (18:00)
[2017-08-10] MEDS: METOCLOPRAMIDE 5 MG TAB PO ×4 (00:06→18:46)
[2017-08-10] MEDS: HYDROmorphONE 0.5 MG/0.5 ML SYG IV (05:01)
[2017-08-10] MEDS: PANTOPRAZOLE 40 MG INJ IV ×2 (05:01→18:46)
[2017-08-10 05:48] LABS: ADD MAN DIFF? NO
[2017-08-10 05:57] LABS: WHITE BLOOD COUNT 5.7 10^3/ul (4.8-10.8)
[2017-08-10 05:57] LABS: ABNORMAL IP MESSAGE 1; BASOPHILS % 0.4 % (0.0-2.0); HEMATOCRIT 30.4 % (37.0-47.0); HEMOGLOBIN 9.3 g/dl (12.0-16.0); LYMPHOCYTES # 0.5 10^3/ul (0.8-2.9); LYMPHOCYTES % 9.5 % (15.0-51.0); MEAN CORPUSCULAR HEMOGLOBIN 29.4 pg (29.0-33.0); MEAN CORPUSCULAR HGB CONC 30.6 g/dl (32.0-37.0); MEAN CORPUSCULAR VOLUME 96.2 fl (82.0-101.0); MEAN PLATELET VOLUME 11.9 fl (7.4-10.4); MONOCYTE # 0.4 10^3/ul (0.3-0.9); MONOCYTES % 7.6 % (0.0-11.0); NEUTROPHIL # 4.7 10^3/ul (1.6-7.5); NEUTROPHILS % 82.1 % (39.0-77.0); PLATELET COUNT 100 10^3/UL (140-415); RED BLOOD COUNT 3.16 10^6/ul (4.20-5.40); RED CELL DISTRIBUTION WIDTH 16.2 % (11.5-14.5)
[2017-08-10 06:11] LABS: ANION GAP 12 (8-16); BLOOD UREA NITROGEN 52 mg/dl (7-20); CALCIUM 7.8 mg/dl (8.4-10.2); CARBON DIOXIDE 31 mmol/L (21-31); CHLORIDE 107 mmol/L (97-110); GLUCOSE 116 mg/dl (70-220); MAGNESIUM 1.9 mg/dl (1.7-2.5); PHOSPHORUS 2.9 mg/dl (2.5-4.9); POTASSIUM 3.7 mmol/L (3.5-5.1); SODIUM 146 mmol/L (135-144)
[2017-08-10 06:19] LABS: POSITIVE DIFF @See below
[2017-08-10] MEDS: FLUCONAZOLE 100 MG TAB PO (08:44)
[2017-08-10] MEDS: ZINC SULFATE 220 MG CAP NGT (08:44)
[2017-08-10] MEDS: ZYVOX 600 MG TAB PO ×2 (08:44→20:45)
[2017-08-10] MEDS: ASCORBIC ACID 500 MG TAB NGT (08:44)
[2017-08-10] MEDS: COLLAGENASE 30 GM TUBE TOP (08:45)
[2017-08-10] MEDS: MULTIVITAMINS 30 ML CUP NGT (08:45)
[2017-08-10] MEDS: ERYTHROMYCIN BASE (EC) 250 MG TAB PO ×3 (08:45→20:45)
[2017-08-10] MEDS: MAGNESIUM SULFATE 2 GM/50 ML 50 ML IVPB (10:00)
[2017-08-10] MEDS: POTASSIUM CHLORIDE 20 MEQ POWDER FOR ORAL SOLN GTB (11:11)
[2017-08-10] MEDS: CEFTAZIDIME 1GM/50 ML (PMX) 50 ML IVPB (18:46)
== END 2017-08-10 22:46 | DRG 4 ==
LOC: ICU 05:53
PROC: 0B110F4 Bypass Trachea to Cutaneous with Tracheostomy Device, Open Approach (ICD-10-PCS; 2017-07-28 14:00)
PROC: 0BJ08ZZ Inspection of Tracheobronchial Tree, Via Natural or Artificial Opening Endoscopic (ICD-10-PCS; 2017-07-28 14:00)
PROC: 05H533Z Insertion of Infusion Device into Right Subclavian Vein, Percutaneous Approach (ICD-10-PCS; principal; 2017-07-28 15:16)
PROC: 5A1955Z Respiratory Ventilation, Greater than 96 Consecutive Hours (ICD-10-PCS; 2017-07-28 15:16)
PROC: 02HV33Z Insertion of Infusion Device into Superior Vena Cava, Percutaneous Approach (ICD-10-PCS; 2017-07-28 15:16)
PROC: 0DH63UZ Insertion of Feeding Device into Stomach, Percutaneous Approach (ICD-10-PCS; 2017-07-28 15:16)
PROC: 0BH17EZ Insertion of Endotracheal Airway into Trachea, Via Natural or Artificial Opening (ICD-10-PCS; 2017-07-28 15:16)
PROC: 5A12012 Performance of Cardiac Output, Single, Manual (ICD-10-PCS; 2017-07-28 15:16)
PROC: 30233N1 Transfusion of Nonautologous Red Blood Cells into Peripheral Vein, Percutaneous Approach (ICD-10-PCS; 2017-07-28 15:16)
DX: A41.9 Sepsis, unspecified organism (principal); R65.21 Severe sepsis with septic shock; N17.0 Acute kidney failure with tubular necrosis; E43 Unspecified severe protein-calorie malnutrition; G92 Toxic encephalopathy; J15.1 Pneumonia due to Pseudomonas; J96.21 Acute and chronic respiratory failure with hypoxia; L89.150 Pressure ulcer of sacral region, unstageable; J15.8 Pneumonia due to other specified bacteria; J96.22 Acute and chronic respiratory failure with hypercapnia; I46.9 Cardiac arrest, cause unspecified; E87.0 Hyperosmolality and hypernatremia; R64 Cachexia; J44.0 Chronic obstructive pulmonary disease with (acute) lower respiratory infection; J44.1 Chronic obstructive pulmonary disease with (acute) exacerbation; Z68.1 Body mass index [BMI] 19.9 or less, adult; N39.0 Urinary tract infection, site not specified; K92.2 Gastrointestinal hemorrhage, unspecified; J93.9 Pneumothorax, unspecified; D69.6 Thrombocytopenia, unspecified; G89.4 Chronic pain syndrome; K21.9 Gastro-esophageal reflux disease without esophagitis; I10 Essential (primary) hypertension; D64.9 Anemia, unspecified; F41.9 Anxiety disorder, unspecified; R13.10 Dysphagia, unspecified; M06.9 Rheumatoid arthritis, unspecified; F99 Mental disorder, not otherwise specified; I73.9 Peripheral vascular disease, unspecified; R19.7 Diarrhea, unspecified; R60.0 Localized edema; E87.6 Hypokalemia; R97.0 Elevated carcinoembryonic antigen [CEA]; F17.200 Nicotine dependence, unspecified, uncomplicated; E83.9 Disorder of mineral metabolism, unspecified; B95.2 Enterococcus as the cause of diseases classified elsewhere; Z16.21 Resistance to vancomycin
CPT/HCPCS: 36430; 36569; 36600; 71010; 71045; 74018; 74019; 76775; 76937; 80048; 80053; 80202; 81001; 81003; 82043; 82550; 82803; 82962; 83605; 83690; 83735; 83880; 84100; 84132; 84155; 84300; 84443; 84484; 85025; 85049; 85362; 85378; 85384; 85610; 85670; 85730; 86644; 86850; 86870; 86900; 86901; 86920; 87040; 87070; 87075; 87081; 87086; 89190; 92950; 93005; 93306; 93970; 94002; 94003; 94640; 94660; 94664; 94770; J1120; J1940

== ENCOUNTER 2017-08-21 19:48 | Inpatient (IN) | payer BC ==
[2017-08-21] MEDS: SOD CHLORIDE 0.9% 1,000 ML IV (20:09)
[2017-08-21] MEDS ORDERED: morphine 2 MG INJ IV (20:30)
[2017-08-21] MEDS ORDERED: TOBRAMYCIN IV PER PHARMACY XX (20:30)
[2017-08-21] MEDS ORDERED: LORAZEPAM 2 MG INJ IV (20:30)
[2017-08-21] MEDS ORDERED: ACETAMINOPHEN 650MG/20.3ML CUP PO (20:30)
[2017-08-21] MEDS ORDERED: HYDROCODONE/APAP (5/325) TAB PO (20:30)
[2017-08-21] MEDS ORDERED: ONDANSETRON 4 MG INJ IV (20:30)
[2017-08-21] MEDS ORDERED: ALBUTEROL/IPRATROPIUM (NEB) 3 ML AMP NEB (20:30)
[2017-08-21] MEDS: LINEZOLID 600 MG/D5W (PMX) 300 ML IVPB (21:46)
[2017-08-21 21:51] LABS: AADO2 Arterial 216.6 mmHg (7.0-24.0); Allen Test ACCEPTAB; Arterial Base Excess -6.4 mmol/L (-3.0-3); Arterial Blood Gas Oxygen Sat 92.9 mmHG (95.0-98.0); Arterial COHb 0.3 % (0.0-3.0); Arterial Fraction of Oxyhgb 92.3 % (93.0-99.0); Arterial HCO3 22.2 mmol/L (22.0-26.0); Arterial MetHb 0.3 % (0.0-1.5); Arterial Total Hemglobin 10.6 g/dl (12.0-18.0); MODE VENT - AC; Site Right Radial
[2017-08-21] MEDS: ALBUTEROL/IPRATROPIUM (NEB) 3 ML AMP NEB (22:36)
[2017-08-21] MEDS: metroNIDAZOLE 500 MG/NS (PMX) 100 ML IVPB (22:44)
[2017-08-21] MEDS: NORepinephrine 8MG/250 ML (PMX 250 ML IV (23:24)
[2017-08-21] MEDS: CASPOFUNGIN 50 MG in SOD CHLORIDE 0.9% 250 ML IVPB (23:53)
[2017-08-22] MEDS: ALBUTEROL/IPRATROPIUM (NEB) 3 ML AMP NEB (01:12)
[2017-08-22] MEDS: ALBUTEROL HFA 8 GM INHALER INH ×5 (05:23→21:25)
[2017-08-22] MEDS: IPRATROPIUM (HFA) 12.9 GM INHALER INH ×5 (05:23→21:25)
[2017-08-22 05:29] LABS: WHITE BLOOD COUNT 27.5 10^3/ul (4.8-10.8)
[2017-08-22 05:29] LABS: ABNORMAL IP MESSAGE 1; HEMATOCRIT 31.2 % (37.0-47.0); HEMOGLOBIN 10.2 g/dl (12.0-16.0); MEAN CORPUSCULAR HEMOGLOBIN 29.6 pg (29.0-33.0); MEAN CORPUSCULAR HGB CONC 32.7 g/dl (32.0-37.0); MEAN CORPUSCULAR VOLUME 90.4 fl (82.0-101.0); MEAN PLATELET VOLUME 12.3 fl (7.4-10.4); NUCLEATED RED BLOOD CELLS% 0.3 /100WBC (0.0-0.0); PLATELET COUNT 151 10^3/UL (140-415); RED BLOOD COUNT 3.45 10^6/ul (4.20-5.40); RED CELL DISTRIBUTION WIDTH 15.9 % (11.5-14.5)
[2017-08-22 05:30] LABS: POSITIVE DIFF @See below
[2017-08-22 05:31] LABS: ADD MAN DIFF? YES
[2017-08-22] MEDS: PANTOPRAZOLE 40 MG INJ IV (05:41)
[2017-08-22] MEDS: metroNIDAZOLE 500 MG/NS (PMX) 100 ML IVPB ×3 (05:41→21:39)
[2017-08-22 06:00] LABS: ALANINE AMINOTRANSFERASE 21 IU/L (13-69); ALBUMIN 1.9 g/dl (3.3-4.9); ALKALINE PHOSPHATASE 154 IU/L (42-121); ANION GAP 15 (8-16); ASPARTATE AMINO TRANSFERASE 11 IU/L (15-46); BLOOD UREA NITROGEN 97 mg/dl (7-20); CALCIUM 7.7 mg/dl (8.4-10.2); CARBON DIOXIDE 20 mmol/L (21-31); CHLORIDE 99 mmol/L (97-110); CREATININE 1.77 mg/dl (0.44-1.00); GLUCOSE 105 mg/dl (70-220); POTASSIUM 3.7 mmol/L (3.5-5.1); SODIUM 130 mmol/L (135-144); TOTAL PROTEIN 3.8 g/dl (6.1-8.1)
[2017-08-22 06:10] LABS: MAGNESIUM 2.7 mg/dl (1.7-2.5)
[2017-08-22 06:10] LABS: PHOSPHORUS 3.4 mg/dl (2.5-4.9)
[2017-08-22 06:39] LABS: LACTIC ACID 2.2 mmol/L (0.5-2.0)
[2017-08-22 07:41] LABS: ANISOCYTOSIS 1+ (0-0); BAND NEUTROPHILS #M 13.4 10^3/ul (0.0-0.6); BAND NEUTROPHILS % (M) 49 % (0-4); EOSINOPHILS % (M) 1 % (0-7); LYMPHOCYTES #M 0.5 10^3/ul (0.8-2.9); LYMPHOCYTES % (M) 2 % (15-51); METAMYELOCYTES #M 1.1 10^3/ul (0.0-0.0); METAMYELOCYTES %M 4 % (0-0); MICROCYTOSIS 1+ (0-0); MYELOCYTES #M 0.5 10^3/ul (0.0-0.0); MYELOCYTES % (M) 2 % (0-0); PLATELET ESTIMATE NORMAL; POLYCHROMASIA 1+ (0-0); PROMYELOCYTES #M 0.2 10^3/ul (0-0); PROMYELOCYTES % (M) 1 % (0-0); RBC MORPHOLOGY COMMENT @See below; SEGMENTED NEUTROPHILS (M) % 41 % (39-77); SMUDGE%M 8 % (0-0); WBC MORPHOLOGY COMMENT @See below
[2017-08-22] MEDS: ASCORBIC ACID 500 MG TAB GTB (09:42)
[2017-08-22] MEDS: ZINC SULFATE 220 MG CAP PO (09:42)
[2017-08-22] MEDS: SOD CHLORIDE 0.9% 1,000 ML IV ×2 (09:42→14:24)
[2017-08-22] MEDS: LINEZOLID 600 MG/D5W (PMX) 300 ML IVPB ×2 (09:42→20:25)
[2017-08-22] MEDS: COLLAGENASE 30 GM TUBE TOP (09:42)
[2017-08-22 18:11] LABS: AADO2 Arterial 165.5 mmHg (7.0-24.0); Allen Test ACCEPTAB; Arterial Base Excess -7.4 mmol/L (-3.0-3); Arterial Blood Gas Oxygen Sat 92.6 mmHG (95.0-98.0); Arterial COHb 0 % (0.0-3.0); Arterial Fraction of Oxyhgb 92.3 % (93.0-99.0); Arterial HCO3 19.6 mmol/L (22.0-26.0); Arterial MetHb 0.3 % (0.0-1.5); Arterial Total Hemglobin 11.4 g/dl (12.0-18.0); Arterial pCO2 45.2 mmhg (35-45); MODE VENT - AC; Site Right Radial
[2017-08-22] MEDS: TOBRAMYCIN 100 MG in DEXTROSE 5% 100 ML IVPB (18:50)
[2017-08-22] MEDS: SODIUM HYPOCHLORITE 0.125% 473 ML BTL IRR (20:25)
[2017-08-22] MEDS: CASPOFUNGIN 50 MG in SOD CHLORIDE 0.9% 250 ML IVPB (22:50)
[2017-08-23] MEDS: IPRATROPIUM (HFA) 12.9 GM INHALER INH ×6 (01:46→21:04)
[2017-08-23] MEDS: ALBUTEROL HFA 8 GM INHALER INH ×6 (01:46→21:04)
[2017-08-23 05:56] LABS: ABNORMAL IP MESSAGE 1; HEMATOCRIT 31.9 % (37.0-47.0); HEMOGLOBIN 10.7 g/dl (12.0-16.0); MEAN CORPUSCULAR HEMOGLOBIN 30.1 pg (29.0-33.0); MEAN CORPUSCULAR HGB CONC 33.5 g/dl (32.0-37.0); MEAN CORPUSCULAR VOLUME 89.9 fl (82.0-101.0); MEAN PLATELET VOLUME 12.2 fl (7.4-10.4); NUCLEATED RED BLOOD CELLS% 0.3 /100WBC (0.0-0.0); PLATELET COUNT 164 10^3/UL (140-415); RED BLOOD COUNT 3.55 10^6/ul (4.20-5.40); RED CELL DISTRIBUTION WIDTH 15.9 % (11.5-14.5)
[2017-08-23 05:56] LABS: WHITE BLOOD COUNT 30.7 10^3/ul (4.8-10.8)
[2017-08-23 06:01] LABS: POSITIVE DIFF @See below
[2017-08-23 06:02] LABS: ADD MAN DIFF? YES
[2017-08-23] MEDS: SOD CHLORIDE 0.9% 1,000 ML IV ×2 (06:13→12:09)
[2017-08-23] MEDS: PANTOPRAZOLE 40 MG INJ IV (06:13)
[2017-08-23] MEDS: metroNIDAZOLE 500 MG/NS (PMX) 100 ML IVPB ×3 (06:14→21:55)
[2017-08-23 06:28] LABS: ANION GAP 16 (8-16)
[2017-08-23 07:02] LABS: CARBON DIOXIDE 17 mmol/L (21-31); CHLORIDE 100 mmol/L (97-110); GLUCOSE 91 mg/dl (70-220); POTASSIUM 3.7 mmol/L (3.5-5.1); SODIUM 129 mmol/L (135-144)
[2017-08-23 07:03] LABS: BLOOD UREA NITROGEN 98 mg/dl (7-20); CALCIUM 7.7 mg/dl (8.4-10.2); CREATININE 1.72 mg/dl (0.44-1.00); MAGNESIUM 2.7 mg/dl (1.7-2.5); PHOSPHORUS 3.9 mg/dl (2.5-4.9)
[2017-08-23 07:29] LABS: ANISOCYTOSIS 1+ (0-0); BAND NEUTROPHILS #M 9.2 10^3/ul (0.0-0.6); BAND NEUTROPHILS % (M) 30 % (0-4); EOSINOPHILS % (M) 1 % (0-7); LYMPHOCYTES #M 0.3 10^3/ul (0.8-2.9); LYMPHOCYTES % (M) 1 % (15-51); METAMYELOCYTES #M 0.6 10^3/ul (0.0-0.0); METAMYELOCYTES %M 2 % (0-0); MICROCYTOSIS 1+ (0-0); MONOCYTE #M 0.9 10^3/ul (0.3-0.9); MONOCYTES % (M) 3 % (0-11); PLATELET ESTIMATE NORMAL; POIKILOCYTOSIS 1+ (0-0); POLYCHROMASIA 1+ (0-0); REACTIVE LYMPHOCYTES #M 0.6 10^3/ul (0.0-0.0); REACTIVE LYMPHOCYTES% (M) 2 % (0-0); SEG NEUT #M 21.6 10^3/ul (1.6-7.5); SEGMENTED NEUTROPHILS (M) % 61 % (39-77); SMUDGE%M 2 % (0-0)
[2017-08-23 08:19] LABS: AADO2 Arterial 236.8 mmHg (7.0-24.0); Allen Test ACCEPTAB; Arterial Base Excess -9.4 mmol/L (-3.0-3); Arterial Blood Gas Oxygen Sat 93.9 mmHG (95.0-98.0); Arterial COHb 0.1 % (0.0-3.0); Arterial Fraction of Oxyhgb 93.5 % (93.0-99.0); Arterial HCO3 17.4 mmol/L (22.0-26.0); Arterial MetHb 0.3 % (0.0-1.5); Arterial pCO2 41.3 mmhg (35-45); MODE VENT - AC; Site Right Radial
[2017-08-23] MEDS: LINEZOLID 600 MG/D5W (PMX) 300 ML IVPB ×2 (08:23→20:25)
[2017-08-23] MEDS: FUROSEMIDE 40 MG INJ IV (08:24)
[2017-08-23] MEDS: SODIUM HYPOCHLORITE 0.125% 473 ML BTL IRR ×2 (08:24→20:25)
[2017-08-23] MEDS: ASCORBIC ACID 500 MG TAB GTB (08:24)
[2017-08-23] MEDS: COLLAGENASE 30 GM TUBE TOP (08:24)
[2017-08-23] MEDS: ZINC SULFATE 220 MG CAP PO (08:24)
[2017-08-23] MEDS: LIDOCAINE 1% (MPF) 5 ML VIAL SC (12:24)
[2017-08-23] MEDS: SOD CHLORIDE 0.9% 100 ML (12:30)
[2017-08-23] MEDS: SODIUM BICARBONATE (IV ADD) 100 MEQ in DEXTROSE 5%-0.45% NACL 1,000 ML IV ×3 (12:47→23:08)
[2017-08-23] MEDS: CASPOFUNGIN 50 MG in SOD CHLORIDE 0.9% 250 ML IVPB (23:05)
[2017-08-24] MEDS: IPRATROPIUM (HFA) 12.9 GM INHALER INH ×6 (01:05→20:36)
[2017-08-24] MEDS: ALBUTEROL HFA 8 GM INHALER INH ×6 (01:05→20:36)
[2017-08-24] MEDS: PANTOPRAZOLE 40 MG INJ IV (06:03)
[2017-08-24] MEDS: metroNIDAZOLE 500 MG/NS (PMX) 100 ML IVPB ×3 (06:03→21:59)
[2017-08-24 06:25] LABS: AADO2 Arterial 244.6 mmHg (7.0-24.0); Allen Test ACCEPTAB; Arterial Base Excess -10.4 mmol/L (-3.0-3); Arterial Blood Gas Oxygen Sat 90.1 mmHG (95.0-98.0); Arterial COHb 0.3 % (0.0-3.0); Arterial Fraction of Oxyhgb 89.5 % (93.0-99.0); Arterial HCO3 16.9 mmol/L (22.0-26.0); Arterial MetHb 0.4 % (0.0-1.5); Arterial Total Hemglobin 11.5 g/dl (12.0-18.0); Blood Gas Mean Airway Pressure 14; MODE VENT - AC; Site Right Radial
[2017-08-24 06:45] LABS: ABNORMAL IP MESSAGE 1; HEMATOCRIT 31.5 % (37.0-47.0); HEMOGLOBIN 10.6 g/dl (12.0-16.0); MEAN CORPUSCULAR HEMOGLOBIN 30.2 pg (29.0-33.0); MEAN CORPUSCULAR HGB CONC 33.7 g/dl (32.0-37.0); MEAN CORPUSCULAR VOLUME 89.7 fl (82.0-101.0); MEAN PLATELET VOLUME 11.4 fl (7.4-10.4); NUCLEATED RED BLOOD CELLS% 0.6 /100WBC (0.0-0.0); PLATELET COUNT 159 10^3/UL (140-415); RED BLOOD COUNT 3.51 10^6/ul (4.20-5.40); RED CELL DISTRIBUTION WIDTH 16.1 % (11.5-14.5)
[2017-08-24 06:56] LABS: ANION GAP 18 (8-16); BLOOD UREA NITROGEN 92 mg/dl (7-20); CALCIUM 7.5 mg/dl (8.4-10.2); CARBON DIOXIDE 18 mmol/L (21-31); CHLORIDE 97 mmol/L (97-110); CREATININE 1.88 mg/dl (0.44-1.00); GLUCOSE 149 mg/dl (70-220); MAGNESIUM 2.5 mg/dl (1.7-2.5); PHOSPHORUS 3.7 mg/dl (2.5-4.9); POTASSIUM 3.2 mmol/L (3.5-5.1); SODIUM 130 mmol/L (135-144)
[2017-08-24 06:58] LABS: ADD MAN DIFF? YES; POSITIVE DIFF @See below
[2017-08-24 08:07] LABS: ANISOCYTOSIS 1+ (0-0); BAND NEUTROPHILS #M 18.1 10^3/ul (0.0-0.6); BAND NEUTROPHILS % (M) 49 % (0-4); ERYTHROBLAST% (NRBC) (M) 2 % (0-0); LYMPHOCYTES #M 0.3 10^3/ul (0.8-2.9); LYMPHOCYTES % (M) 1 % (15-51); MICROCYTOSIS 1+ (0-0); MONOCYTE #M 1.1 10^3/ul (0.3-0.9); MONOCYTES % (M) 3 % (0-11); PLATELET ESTIMATE NORMAL; POIKILOCYTOSIS 3+ (0-0); POLYCHROMASIA 2+ (0-0); SEG NEUT #M 24.1 10^3/ul (1.6-7.5); SEGMENTED NEUTROPHILS (M) % 47 % (39-77); SMUDGE%M 1 % (0-0)
[2017-08-24] MEDS: ZINC SULFATE 220 MG CAP PO (08:57)
[2017-08-24] MEDS: LINEZOLID 600 MG/D5W (PMX) 300 ML IVPB ×2 (08:57→20:23)
[2017-08-24] MEDS: ASCORBIC ACID 500 MG TAB GTB (08:58)
[2017-08-24] MEDS: POTASSIUM CHLORIDE 100 ML IVPB ×2 (09:55→12:22)
[2017-08-24] MEDS: COLLAGENASE 30 GM TUBE TOP (09:55)
[2017-08-24] MEDS: SODIUM HYPOCHLORITE 0.125% 473 ML BTL IRR ×2 (09:55→20:24)
[2017-08-24] MEDS: SODIUM BICARBONATE (IV ADD) 100 MEQ in DEXTROSE 5%-0.45% NACL 1,000 ML IV ×2 (10:14→20:23)
[2017-08-24 12:30] LABS: HEPATITIS B SURFACE ANTIGEN NEGATIVE (NEGATIVE)
[2017-08-24] MEDS: HEPARIN 1000 UNITS/ML 10 ML INJ CATHETER (12:37)
[2017-08-24] MEDS: TOBRAMYCIN 80 MG in SOD CHLORIDE 0.9% 50 ML IVPB (16:25)
[2017-08-24] MEDS ORDERED: COLISTIMETHATE 75 MG in SOD CHLORIDE 0.9% 100 ML IVPB (18:30)
[2017-08-24] MEDS: COLISTIMETHATE 75 MG in SOD CHLORIDE 0.9% 100 ML IVPB (20:20)
[2017-08-24] MEDS: CASPOFUNGIN 50 MG in SOD CHLORIDE 0.9% 250 ML IVPB (22:12)
[2017-08-25] MEDS: ALBUTEROL HFA 8 GM INHALER INH ×6 (01:04→21:22)
[2017-08-25] MEDS: IPRATROPIUM (HFA) 12.9 GM INHALER INH ×6 (01:04→21:22)
[2017-08-25] MEDS: PANTOPRAZOLE 40 MG INJ IV (05:38)
[2017-08-25] MEDS: metroNIDAZOLE 500 MG/NS (PMX) 100 ML IVPB ×3 (05:38→21:08)
[2017-08-25 06:49] LABS: ABNORMAL IP MESSAGE 1; HEMOGLOBIN 10.1 g/dl (12.0-16.0); MEAN CORPUSCULAR HEMOGLOBIN 30.4 pg (29.0-33.0); MEAN CORPUSCULAR HGB CONC 33.7 g/dl (32.0-37.0); MEAN CORPUSCULAR VOLUME 90.4 fl (82.0-101.0); MEAN PLATELET VOLUME 11.7 fl (7.4-10.4); NUCLEATED RED BLOOD CELLS% 0.6 /100WBC (0.0-0.0); PLATELET COUNT 129 10^3/UL (140-415); RED BLOOD COUNT 3.32 10^6/ul (4.20-5.40); RED CELL DISTRIBUTION WIDTH 16.4 % (11.5-14.5)
[2017-08-25 06:49] LABS: WHITE BLOOD COUNT 38.9 10^3/ul (4.8-10.8)
[2017-08-25 07:04] LABS: ANION GAP 20 (8-16); BLOOD UREA NITROGEN 77 mg/dl (7-20); CALCIUM 7.2 mg/dl (8.4-10.2); CARBON DIOXIDE 18 mmol/L (21-31); CHLORIDE 95 mmol/L (97-110); CREATININE 1.63 mg/dl (0.44-1.00); GLUCOSE 139 mg/dl (70-220); MAGNESIUM 2.2 mg/dl (1.7-2.5); PHOSPHORUS 3.4 mg/dl (2.5-4.9); POTASSIUM 3.3 mmol/L (3.5-5.1); SODIUM 130 mmol/L (135-144)
[2017-08-25 07:16] LABS: ADD MAN DIFF? YES; POSITIVE DIFF @See below
[2017-08-25] MEDS: SODIUM BICARBONATE (IV ADD) 100 MEQ in DEXTROSE 5%-0.45% NACL 1,000 ML IV ×2 (08:39→23:44)
[2017-08-25] MEDS: POTASSIUM CHLORIDE 100 ML IVPB ×2 (08:58→10:29)
[2017-08-25] MEDS: COLLAGENASE 30 GM TUBE TOP (09:00)
[2017-08-25 09:16] LABS: ANISOCYTOSIS 2+ (0-0); BAND NEUTROPHILS #M 12.8 10^3/ul (0.0-0.6); BAND NEUTROPHILS % (M) 33 % (0-4); BURR CELLS 2+ (0-0); EOSINOPHILS % (M) 1 % (0-7); METAMYELOCYTES #M 0.3 10^3/ul (0.0-0.0); METAMYELOCYTES %M 1 % (0-0); MICROCYTOSIS 1+ (0-0); MYELOCYTES #M 0.7 10^3/ul (0.0-0.0); MYELOCYTES % (M) 2 % (0-0); PLATELET ESTIMATE DECREASED; POIKILOCYTOSIS 2+ (0-0); POLYCHROMASIA 3+ (0-0); SEG NEUT #M 29.5 10^3/ul (1.6-7.5); SEGMENTED NEUTROPHILS (M) % 63 % (39-77); SMUDGE%M 2 % (0-0)
[2017-08-25] MEDS: ASCORBIC ACID 500 MG TAB GTB (09:39)
[2017-08-25] MEDS: ZINC SULFATE 220 MG CAP PO (09:39)
[2017-08-25] MEDS: DOPamine-D5W 1.6 MG/ML 250 ML IV ×2 (10:24→23:25)
[2017-08-25] MEDS: LINEZOLID 600 MG/D5W (PMX) 300 ML IVPB ×2 (11:42→21:07)
[2017-08-25 11:48] LABS: AADO2 Arterial 578.6 mmHg (7.0-24.0); Allen Test ACCEPTAB; Arterial Base Excess -10.8 mmol/L (-3.0-3); Arterial Blood Gas Oxygen Sat 93.8 mmHG (95.0-98.0); Arterial COHb 0.3 % (0.0-3.0); Arterial Fraction of Oxyhgb 93.1 % (93.0-99.0); Arterial HCO3 18.5 mmol/L (22.0-26.0); Arterial MetHb 0.4 % (0.0-1.5); Arterial Total Hemglobin 11.9 g/dl (12.0-18.0); Arterial pCO2 56.6 mmhg (35-45); MODE VENT - AC; Site Right Radial
[2017-08-25] MEDS: SODIUM HYPOCHLORITE 0.125% 473 ML BTL IRR ×2 (15:04→21:08)
[2017-08-25] MEDS: PHENYLephrine 160 MG in DEXTROSE 5% 484 ML IV (22:09)
[2017-08-25] MEDS: CASPOFUNGIN 50 MG in SOD CHLORIDE 0.9% 250 ML IVPB (23:43)
[2017-08-26] MEDS: IPRATROPIUM (HFA) 12.9 GM INHALER INH ×6 (01:43→21:04)
[2017-08-26] MEDS: ALBUTEROL HFA 8 GM INHALER INH ×6 (01:44→21:05)
[2017-08-26 06:12] LABS: WHITE BLOOD COUNT 49.4 10^3/ul (4.8-10.8)
[2017-08-26 06:12] LABS: ABNORMAL IP MESSAGE 1; HEMATOCRIT 27.3 % (37.0-47.0); HEMOGLOBIN 8.7 g/dl (12.0-16.0); MEAN CORPUSCULAR HEMOGLOBIN 30.3 pg (29.0-33.0); MEAN CORPUSCULAR HGB CONC 31.9 g/dl (32.0-37.0); MEAN CORPUSCULAR VOLUME 95.1 fl (82.0-101.0); MEAN PLATELET VOLUME 11.1 fl (7.4-10.4); NUCLEATED RED BLOOD CELLS% 0.4 /100WBC (0.0-0.0); RED BLOOD COUNT 2.87 10^6/ul (4.20-5.40); RED CELL DISTRIBUTION WIDTH 16.8 % (11.5-14.5)
[2017-08-26 06:15] LABS: PLATELET COUNT 67 10^3/UL (140-415); POSITIVE DIFF @See below
[2017-08-26 06:16] LABS: ADD MAN DIFF? YES
[2017-08-26] MEDS: PANTOPRAZOLE 40 MG INJ IV (06:32)
[2017-08-26] MEDS: metroNIDAZOLE 500 MG/NS (PMX) 100 ML IVPB ×3 (06:33→21:31)
[2017-08-26 06:37] LABS: ANION GAP 24 (8-16); BLOOD UREA NITROGEN 69 mg/dl (7-20); CALCIUM 7.1 mg/dl (8.4-10.2); CARBON DIOXIDE 12 mmol/L (21-31); CHLORIDE 91 mmol/L (97-110); CREATININE 1.62 mg/dl (0.44-1.00); GLUCOSE 209 mg/dl (70-220); MAGNESIUM 2.2 mg/dl (1.7-2.5); PHOSPHORUS 4.8 mg/dl (2.5-4.9); SODIUM 123 mmol/L (135-144)
[2017-08-26] MEDS: PHENYLephrine 160 MG in DEXTROSE 5% 484 ML IV ×2 (06:45→15:41)
[2017-08-26] MEDS: DOPamine-D5W 1.6 MG/ML 250 ML IV ×2 (07:06→08:48)
[2017-08-26] MEDS: COLLAGENASE 30 GM TUBE TOP ×2 (09:00→17:26)
[2017-08-26] MEDS: SODIUM HYPOCHLORITE 0.125% 473 ML BTL IRR ×3 (09:00→20:46)
[2017-08-26] MEDS: ZINC SULFATE 220 MG CAP PO (09:10)
[2017-08-26] MEDS: ASCORBIC ACID 500 MG TAB GTB (09:10)
[2017-08-26] MEDS: LINEZOLID 600 MG/D5W (PMX) 300 ML IVPB (09:11)
[2017-08-26] MEDS: SODIUM BICARBONATE (IV ADD) 100 MEQ in DEXTROSE 5%-0.45% NACL 1,000 ML IV ×2 (09:21→12:43)
[2017-08-26 09:38] LABS: ANISOCYTOSIS 1+ (0-0); BAND NEUTROPHILS #M 23.7 10^3/ul (0.0-0.6); BAND NEUTROPHILS % (M) 48 % (0-4); LYMPHOCYTES #M 1.4 10^3/ul (0.8-2.9); LYMPHOCYTES % (M) 3 % (15-51); METAMYELOCYTES #M 0.4 10^3/ul (0.0-0.0); METAMYELOCYTES %M 1 % (0-0); MONOCYTE #M 1.4 10^3/ul (0.3-0.9); MONOCYTES % (M) 3 % (0-11); MYELOCYTES #M 1.4 10^3/ul (0.0-0.0); MYELOCYTES % (M) 3 % (0-0); PLATELET ESTIMATE SIG DECREASED; POIKILOCYTOSIS 1+ (0-0); SEG NEUT #M 32.5 10^3/ul (1.6-7.5); SEGMENTED NEUTROPHILS (M) % 42 % (39-77); SMUDGE%M 2 % (0-0)
[2017-08-26] MEDS: DOPamine 1,600 MG in DEXTROSE 5% 210 ML IV (13:38)
[2017-08-26] MEDS: COLISTIMETHATE 75 MG in SOD CHLORIDE 0.9% 100 ML IVPB (20:45)
== END 2017-08-26 23:43 | disposition expired | DRG 870 ==
LOC: ICU 19:48
PROC: 5A1955Z Respiratory Ventilation, Greater than 96 Consecutive Hours (ICD-10-PCS; principal; 2017-08-21)
DX: A41.9 Sepsis, unspecified organism (principal); R65.21 Severe sepsis with septic shock; G92 Toxic encephalopathy; N17.9 Acute kidney failure, unspecified; J18.9 Pneumonia, unspecified organism; E46 Unspecified protein-calorie malnutrition; J96.91 Respiratory failure, unspecified with hypoxia; J96.92 Respiratory failure, unspecified with hypercapnia; Z99.11 Dependence on respirator [ventilator] status; N39.0 Urinary tract infection, site not specified; E87.1 Hypo-osmolality and hyponatremia; E83.51 Hypocalcemia; E88.09 Other disorders of plasma-protein metabolism, not elsewhere classified; I10 Essential (primary) hypertension; K21.9 Gastro-esophageal reflux disease without esophagitis; G89.4 Chronic pain syndrome; J44.9 Chronic obstructive pulmonary disease, unspecified; Z93.1 Gastrostomy status
CPT/HCPCS: 36569; 36600; 71045; 76937; 80048; 80053; 82803; 83605; 83735; 84100; 85025; 87040; 87075; 87081; 87340; 90935; 94002; 94003; 94640; 94664